=== PATIENT | male | born 1950 | race Caucasian/White ===

== ENCOUNTER → 2017-01-01 10:52 | Outpatient (CLI) | payer BC ==
[2016-07-04 08:08] VITALS: BMI 32.6
[~2017-01-01 10:52] MED LIST: ASPIRIN81 MG PO; BACTRIM DS TABL1 TAB PO; BENADRYL25 MG PO; CARDURA4 MG PO; COREG12.5 MG PO; COZAAR100 MG PO; FOLIC ACID1 MG PO; HYDROCODONE-APA1 TAB PO; NORVASC10 MG PO; PLAVIX75 MG PO; PRAVACHOL40 MG PO; PROTONIX40 MG PO; TRIAMTERENE-HCT1 TA1 PO; ULTRAM50 MG PO
== END | disposition home or self-care (01) ==
LOC: D.CT 10:52
DX: R10.9 Unspecified abdominal pain (principal)

== ENCOUNTER 2017-01-20 05:17 | Inpatient (IN) | payer BC ==
[2017-01-17 15:23] LABS: BASOPHILS 0.3 % (0.0-2.0); EOSINOPHILS 2.8 % (0-7); HEMATOCRIT 39.8 % (42.0-54.0); HEMOGLOBIN 13.1 g/dL (13.5-17.5); IMMATURE GRANULOCYTES 0.1 % (0-5); MCH 27.5 pg (26.0-34.0); MCHC 32.9 g/dL (31.0-37.0); MCV 83.4 fL (80.0-100.0); MEAN PLATELET VOLUME 8.9 fL (7.4-10.4); MONOCYTES 7.5 % (2-11); NEUTROPHILS 58.3 % (40-80); PLATELET COUNT 277 10x3/uL (130-400); RBC 4.77 10x6/uL (4.20-6.10); RDW 14.1 % (11.5-14.5); WBC 7.9 10x3/uL (4.8-10.8)
[2017-01-17 15:37] LABS: APTT 31.6 SECONDS (22.8-39.4); INR 0.99 (0.85-1.17); PROTIME 12.9 SECONDS (11.6-15.0)
[2017-01-17 15:40] LABS: ALBUMIN 3.6 g/dL (3.4-5.0); ALKALINE PHOSPHATASE 76 U/L (46-116); ALT (SGPT) 17 U/L (10-68); CALC OSMOLALITY 281 mosm/kg (275-300); CALCIUM 8.9 mg/dL (8.5-10.1); CARBON DIOXIDE 30.5 mmol/L (21.0-32.0); CHLORIDE - SERUM 103 mmol/L (98-107); CREATININE - SERUM 0.9 mg/dL (0.6-1.3); GLUCOSE 137 mg/dL (74-106); POTASSIUM - SERUM 3.7 mmol/L (3.5-5.1); PROTEIN - SERUM 7.2 g/dL (6.4-8.2); SODIUM 141 mmol/L (136-145); UREA NITROGEN 10 mg/dL (7-18); eGFR NON AFRICAN AMERICAN 90 mL/min (90-120)
[2017-01-17 16:01] LABS: APPEARANCE CLEAR (CLEAR); BILIRUBIN NEGATIVE (NEGATIVE); COLOR YELLOW (YELLOW); GLUCOSE NEGATIVE (NEGATIVE); KETONE NEGATIVE (NEGATIVE); LEUKOCYTE ESTERASE NEGATIVE (NEGATIVE); NITRITE NEGATIVE (NEGATIVE); PROTEIN NEGATIVE (NEGATIVE); UROBILINOGEN NORMAL (NORMAL)
[2017-01-17 16:04] LABS: BACTERIA NONE SEEN /hpf (NONE SEEN); EPITHELIAL CELLS NSEEN /hpf (0-5); RED CELLS - URINE 0-5 /hpf (0-5); WHITE CELLS - URINE NSEEN /hpf (0-5)
--- NOTE | 2017-01-18 10:49 | HP ---
PATIENT: DANIA FISCHER MEDICAL RECORD: [id number] ACCOUNT: [id number] LOCATION:[facility] : 54 ADMISSION DATE: 01/20/17 HISTORY AND PHYSICAL EXAMINATION Patient NameDANIA FISCHER (66yo, M) ID# [id number]. Date/Time01/15/2017 10:29ZVAHE1952Service Dept.NP_[place] ClinicProviderEDGAYLE ORTIZ MDInsuranceMed Primary: [place] Insurance # : [id number] Policy/Group # : [id number] Referring Provider Name : ANTONIO SHANNON Employer Name : [employer] Prescription: CMX - Member is eligible. Chief Complaint AAA, abdominal aortic aneurysm CTA abd/pelvis Patient's Care Team Referring Provider (): ANTONIO SHANNON: [address] [place] [phone], , Patient's Pharmacies [facility] ([facility]): [address] [place] [id number], , Vitals BP:124/74 sitting R arm 01/15/2017 10:20 am 102/70 sitting L arm 01/15/2017 10:20 amHR:72R/R 01/15/2017 10:20 amHt:6 ft 01/15/2017 10:20 amWt:238 lbs 01/15/2017 10:18 amBMI:32.3 01/15/2017 10:20 amAllergies Reviewed Allergies NKDAMedications Reviewed Medications amLODIPine 10 mg qacybr14/23/17 filledCaremarkcarvedilol 12.5 mg htnany50/23/17 filledCaremarkdoxazosin 4 mg /23/17 filledCaremarklosartan 100 mg ottgrr04/23/17 filledCaremarkpantoprazole 40 mg tablet,delayed qkeceyz87/15/17 filledCaremarkpravastatin 40 mg ijooag58/27/17 filledCaremarktraMADol 50 mg eybyxl41/13/17 filledCaremarktriamterene 37.5 mg-hydrochlorothiazide 25 mg tthxto22/23/17 filledCaremarkProblems Reviewed Problems Abdominal aortic aneurysm without rupture - Onset: 01/13/2017 Family History Discussed Family History Mother- Heart disease - Diabetes Mellitus/CVA/Kidney diseaseFather- Myocardial infarction - hyperlipedemia/HypertensionSocial History Discussed Social History Cardiology Smoking Status: Current every day smoker Smoker (1 PPW) High Cholesterol: Y High blood pressure: Y Alcohol intake: Occasional Marital status: Tobacco-years of use: 40 HISTORY AND PHYSICAL [id number] DANIA FISCHER Surgical History Reviewed Surgical History Other - back surgery Past Medical History Discussed Past Medical History Abdominal Pain: Y Aortic Aneurysm: Y - abdomen GERD: Y High Blood Pressure: Y Notes: Rheumatoid arthritis Documents for Discussion N/A Screening None recorded. HPI Peripheral Vascular Disease Reported by patient. Location: calf ("left leg hurt more than right."); abdomen Quality: cramping Severity: mild Onset/Timing: intermittent Alleviating Factors: rest Aggravating Factors: walking large abdominal aortic aneurysm ROS Patient reports cough but reports no wheezing, no shortness of breath, and no coughing up blood. He reports arthralgias/joint pain but reports no muscle aches, no muscle weakness, no back pain, and no swelling in the extremities; rheumatoid arthritis. He reports no fever, no night sweats, no significant weight gain, no significant weight loss, and no exercise intolerance. He reports no dry eyes, no irritation, and no vision change. He reports no difficulty hearing and no ear pain. He reports no frequent nosebleeds and no nose/sinus problems. He reports no sore throat, no bleeding gums, no snoring, no dry mouth, no mouth ulcers, no oral abnormalities, and no teeth problems. He reports no jugula r vein distension and no swollen glands. He reports no chest pain, no arm pain on exertion, no shortness of breath when walking, no shortness of breath when lying down, no palpitations, and no known heart murmur. He reports no abdominal pain, no vomiting, n ormal appetite, no diarrhea, not vomiting blood, no nausea, and no constipation. He reports no incontinence, no difficulty urinating, no hematuria, and no increased frequency. He reports no abnormal mole, no jaundice, and no rashes. He reports no loss of c onsciousness, no weakness, no numbness, no seizures, no dizziness, and no headaches. He reports no depression, no sleep disturbances, feeling safe in relationship, and no alcohol abuse. He reports no fatigue. He reports no swollen glands and no bruising. He reports no runny nose, no sinus pressure, no itching, no hives, and no frequent sneezing. ROS as noted in the HPI Physical Exam Patient is a 66-year-old male. Constitutional: General Appearance well nourished and developed and healthy-appearing. Level of Distress NAD. Ambulation ambulating normally. Cardiovascular: Apical Impulse not displaced or no thrill. Heart Auscultation normal s1 and s2; no murmurs, rubs, or gallops; and RRR. Arterial Pulses no HISTORY AND PHYSICAL [id number] DANIA FISCHER abdominal aorta bruits, femoral bruits, or popliteal bruits and 2+ bilateral, carotid 2+ bilateral, femoral 2+ bilateral, popliteal 2+ bilateral, and dorsalis pedis 2+ bilateral. Edema no edema or varicosities. Lungs: Repiratory Effort no dyspnea. Percussion no dullness or flatness and hyperresonance . Auscultation no wheezing, rhonchi, or rales / crackles and breathing sounds normal, good air movement, and CTA except as noted. Abdomen: Bowl Sounds normal. Inspection and Palpation no tenderness, guarding, masses, or rebound tenderness and soft and non-distended; abdominal aortic aneurysm nontender. Liver non-tender and no hepatomegaly. Spleen non-tender and no splenomegaly. Hernia none palpable. Musculoskeletal System: Gait And Stance normal gait and stance. Digits and Nails normal nails and no cyanosis. Joints, Bones, and Muscles Rheumatoid Arthritis. Neurologic: Cranial Nerves grossly intact. Reflexes DTRs 2+ bilaterally throughout. Sensation grossly intact. Lymph Nodes: Lymph Nodes no cervical LAD, supraclavicular LAD, axillary LAD, or inguinal LAD. Eyes: Lids and Conjunctivae no discharge or pallor and non-injected. Pupils PERRLA. Cornea grossly intact. EOM EOMI. Lens clear. Sclerae non-icteric. Neck: Neck no masses, enlarged lymph nodes, or carotid bruits and supple and trachea midline. Thyroid no enlargement or nodules and non-tender. Skin: Inspection and Palpation no rash, lesions, ulcers, jaundice, or abnormal nevi. Assessment / Plan abdominal aortic aneurysm 1. Abdominal aortic aneurysm I71.4: Abdominal aortic aneurysm, without rupture 2. Rheumatoid arthritis M06.9: Rheumatoid arthritis, unspecified RHEUMATOID ARTHRITIS DIET: CARE INSTRUCTIONS RHEUMATOID ARTHRITIS: CARE INSTRUCTIONS 3. Tobacco dependence syndrome F17.290: Nicotine dependence, other tobacco product, uncomplicated DECIDING ABOUT USING MEDICINES TO QUIT SMOKING STOPPING SMOKING: CARE INSTRUCTIONS Discussion Notes the patient is a large abdominal aortic aneurysm not amenable to [employer]tron[employer] stent We will review his CT scan with and [employer] he may be a candidate for oblation stent. I have discussed his disease process with him and his in detail as well as the alternative methods of treatment. We discussed endovascular and open repair of his abdominal aortic aneurysm including the expected benefits and risk which i ncluded bleeding, infection, stroke, , and the imponderables. He understands all of the above and wishes to proceed with planned surgery. Schedule for the near future HISTORY AND PHYSICAL [id number] DANIA FISCHER Return to Office None recorded. CAREY ORTIZ MD at 1049 CC: [id number] DICTATION DATE: 01/15/17 1000 IMMIGRATION ATTORNEY: CARMINE 01/17/17 1320 PRE IN [facility] [address] [place] [address]
[~2017-01-20] VITALS: Ht 182.9 cm; Wt 116.7 kg
[2017-01-20] VITALS (47 sets, daily range): BP systolic 95–139; BP diastolic 38–83; BMI 32.3; BMI 31.9
--- NOTE | ~2017-01-20 | HEMODYNAMI ---
PATIENT:DANIA FISCHER MEDICAL RECORD: [id number] : 54 [address] [id number] ADMISSION DATE: 01/20/17 Generatedon:01/21/201712:36 Patient name: DANIA FISCHER Patient #: [id number] SSN: : 1950 Date of study: 01/21/2017 Page: Of Hemodynamic Procedure Report Patient Data Patient Demographics Procedure consent was obtained First Name: DANIA Gender: Male Last Name: AALIYAH : 1950 [facility] Initial: J Age: 66 year(s) Patient #: [id number] Race: Unknown Additional ID: [id number] Contact details [address]: [address] [place] [address] State: [place] City: [place] Zip code: [address] Admission Admission Data Admission Date: 01/20/2017 Admission Time: 5:17 Room #: [facility] Procedure Procedure Types Cath Procedure Peripheral Cath Diagnostic Procedure Miscellaneous Procedure Description Procedure Date Procedure Date: 01/21/2017 Procedure Start Time: 11:06 Procedure Staff Name Function Joe Pfeiffer MD Performing Physician Nicole Carrillo RT Scrub Ladan Brooke RN Nurse Volodymyr Freire RT Monitor Procedure Data Cath Procedure Fluoroscopy Diagnostic fluoroscopy Total fluoroscopy Time: 8.6 time: 8.6 min min Diagnostic fluoroscopy Total fluoroscopy dose: dose: 5038.1 mGy 5038.1 mGy Contrast Material Contrast Material Type Amount (ml) Visipaque 270 155 Entry Location Entry Primary Successful Side Size Upsize Upsize Entry Closure Succes sful Closure Location (Fr) 1 (Fr) 2 (Fr) Remarks Device Remarks Femoral Right 5 Fr 6 Fr 7 Fr artery Short Short Femoral Left 5 Fr artery Diagnostic catheters Device Type Used For End Catheter Placement Merit ULTRA BOLUS FLUSH 5Fr 65CM catheter Procedure Medications Medication Administration Route Dosage Versed I.V. 1 mg Fentanyl I.V. 50 mcg Fentanyl I.V. 50 mcg Fentanyl I.V. 50 mcg Versed I.V. 1 mg Versed I.V. 1 mg Fentanyl I.V. 50 mcg Benadryl I.V. 50 mg Lasix I.V. 20 mg Albuterol Updraft Versed I.V. 1 mg Fentanyl I.V. 50 mcg Fentanyl I.V. 50 mcg Hemodynamics Rest Heart Rate: 149 (bpm) Snapshots Pre Cath Intra NCS Post Cath Vital Signs Time Heart Resp SPO2 NIBP (mmHg) Rhythm Pain Sedation Rate (ipm) (%) Status Level (bpm) 10:56:54 157 17 93 134/84(114) ST 7 (11) 10(A) , Very intense 11:01:02 144 17 94 141/91(111) ST 7 (11) 10(A) , Very intense 11:05:12 171 17 93 139/80(121) ST 7 (11) 10(A) , Very intense 11:09:20 148 18 93 136/85(114) ST 7 (11) 10(A) , Very intense 11:13:34 160 17 94 149/89(117) ST 7 (11) 10(A) , Very intense 11:17:52 115 17 94 157/94(118) ST 7 (11) 10(A) , Very intense 11:22:08 130 17 93 147/90(124) ST 7 (11) 10(A) , Very intense 11:26:24 90 16 95 157/92(126) ST 0 (11) 9(A) , No pain 11:30:44 123 17 96 160/93(128) ST 0 (11) 10(A) , No pain 11:35:02 122 19 95 147/93(117) ST 0 (11) 10(A) , No pain 11:40:02 [address] 0 (11) 9(A) , No pain 11:40:16 107 20 92 153/96(124) ST 0 (11) 10(A) , No pain 11:44:36 115 17 92 168/117(138) NSR 0 (11) 10(A) , No pain 11:49:08 111 17 90 167/83(122) NSR 0 (11) 10(A) , No pain 11:53:34 113 18 92 166/103(137) NSR 0 (11) 10(A) , No pain 11:57:59 103 15 93 171/98(129) NSR 0 (11) 10(A) , No pain 12:02:58 114 12 94 Measuring NSR 0 (11) 10(A) , No pain 12:03:35 93 17 93 155/100(124) NSR 0 (11) 10(A) , No pain 12:08:34 118 19 94 Measuring NSR 0 (11) 10(A) , No pain 12:09:15 141 20 94 150/116(140) NSR 0 (11) 10(A) , No pain 12:13:31 143 15 94 163/102(143) NSR 0 (11) 10(A) , No pain 12:17:55 120 15 94 163/106(144) NSR 0 (11) 10(A) , No pain 12:22:19 131 16 95 147/103(146) NSR 0 (11) 10(A) , No pain 12:26:39 111 16 92 165/102(146) NSR 0 (11) 10(A) , No pain 12:31:20 No Cuff NSR 0 (11) 10(A) , No pain 12:34:55 No Cuff NSR 0 (11) 10(A) , No pain Medications Time Medication Route Dose Verified Delivered Reason Notes Effectiven ess by by 10:42:09 Fentanyl I.V. 50 Ladan Ladan for mcg King ADELA Brooke RN right leg pain 05/26 11:04:40 Versed I.V. 1 mg Ladan Ladan for King ADELA Brooke RN sedation 11:04:48 Fentanyl I.V. 50 Ladan Ladan for mcg King ADELA Brooke RN sedation 11:17:31 Fentanyl I.V. 50 Ladan Ladan for mcg King ADELA Brooke RN right leg pain 05/26 11:25:13 Versed I.V. 1 mg Ladan Ladan for King ADELA Brooke RN sedation 11:33:00 Albuterol inhaled unit Ladan Ladan wheezes Updraft dose King ADELA Brooke RN 11:36:54 Versed I.V. 1 mg Ladan Ladan for King ADELA Brooke RN sedation 11:37:04 Fentanyl I.V. 50 Ladan Ladan for mcg King ADELA Brooke RN right leg pain 05/26 11:41:18 Benadryl I.V. 50 mg Ladan Ladan for King ADELA Brooke RN sedation 11:43:33 Lasix I.V. 20 mg Ladan Ladan wheezes King ADELA Brooke ADELA 12:05:43 Versed I.V. 1 mg Ladan Ladan for King ADELA Brooke ADELA sedation 12:10:52 Fentanyl I.V. 50 Ladan Ladan for ludwin Brooke ADELA right leg pain 05/26 12:17:34 Fentanyl I.V. 50 Ladan Ladan for ludwin Brooke ADELA right leg pain 05/26 Procedure Log Time Note 10:35:33 Volodymyr Freire RT (R) (CV) sent for patient. Start room use. 10:35:44 Time tracking: Regular hours 10:35:49 Plan of Care:Hemodynamics will remain stable., Cardiac rhythm will remain stable., Comfort level will be maintained., Respiratory function will remain adequate., Patient/ family verbilizes understanding of procedure., Procedure tolerated without complication., Recovers from procedure without complications.. 10:35:55 Patient received from ICU to IR Alert and oriented. Tansferred to table in Supine position. 10:35:56 Correct patient and procedure confirmed by team. 10:35:58 Signed procedure consent form obtained from patient. 10:35:59 ECG and BP/O2 sat monitors applied to patient. 10:36:01 Full Disclosure recording started 10:36:03 - 10:36:08 H&P Date Dictated: 01/21/2017 Within 30 days and on chart.. 10:36:10 Pre-procedure instructions explained to patient. 10:36:10 Pre-op teaching completed and patient verbalized understanding. 10:36:12 Family in waiting room. 10:36:15 Patient NPO since Midnight. 10:36:17 Is the patient allergic to Iodine/contrast media? No. 10:36:22 Was the patient premedicated? No 10:36:23 Is patient on blood thinner?No 10:36:25 Patient diabetic? No. 10:36:26 - 10:36:26 ----Pre-sedation anethsthesia assessment.---- 10:36:30 Previous problem with sedation/anesthesia? No ? 10:36:31 Snore? Yes 10:36:32 Sleep apnea? No 10:36:34 Deviated septum? No 10:36:35 Opens mouth fully? Yes 10:36:36 Sticks out tongue? Yes 10:36:38 Airway obstruction? No ? 10:36:42 Dentures? Yes out 10:36:44 - 10:37:11 Use device set IR Diagnostic 10:37:12 Sterile Angiographic Pack opened to sterile field. 10:37:13 Bag Decanter opened to sterile field. 10:37:13 Acist Manifold opened to sterile field. 10:37:15 Acist Syringe opened to sterile field. 10:37:15 Acist Hand Control opened to sterile field. 10:41:01 Pre procedure: right dorsailis pedis pulse 0-Absent 10:41:05 Pre procedure: left dorsailis pedis pulse Doppler 10:41:10 Pre procedure: right posterior tibial pulse 0-Absent 10:41:17 Pre procedure: left posterior tibial pulse Doppler 10:41:20 Sharps counted by scrub and verified by R.N. 10:41:20 Alarms reviewed by R. N. 10:41:31 Patient pain scale 7/10 rt leg. 10:41:41 IV patent on arrival in Lt subclavian with 0.9% NaCl at [facility]. 10:41:47 Bilateral groins area was prepped with chlora-prep and draped in steril e fashion 10:42:09 Fentanyl 50 mcg I.V. was given by Ladan Brooke RN; for right leg pain 710; 10:55:51 Vital chart was started 10:55:52 Baseline sample Acquired. 10:55:57 Rhythm: sinus tachycardia 11::17 Physician arrived 11::18 --------ALL STOP TIME OUT------ 11::18 Final Timeout: patient, procedure, and site verified with staff and physician. All members of the team are in agreement. 11:01:21 Bilateral groins site verified by team. 11::28 Physical assessment completed. ASA score P 3 - A patient with severe systemic disease as per Joe Pfeiffer MD. 11:01:32 Sedation plan: IV Moderate Sedation Versed, Fentanyl 11:04:40 Versed 1 mg I.V. was given by Ladan Brooke RN; for sedation; 11:04:48 Fentanyl 50 mcg I.V. was given by Ladan Brooke RN; for sedation; 11:06:24 Procedure started. 11:06:29 Local anesthetic to right femoral artery with Lidocaine 1% by Joe Pfeiffer MD.INITIAL ACCESS ONLY 11:06:40 A 5 Fr sheath was inserted into the Right Femoral artery 11:06:55 AFreeze DOC .035 guide wire opened to sterile field. 11:06:56 Micropuncture VSI 4FR kit opened to sterile field. 11:06:56 St Anastacio 5FR Sheath opened to sterile field. 11:06:59 A [employer] ULTRA BOLUS FLUSH 5Fr 65CM catheter was advanced over the wire and used for . 11:13:34 FilmijobRUNNER .035 145 glide wire opened to sterile field. 11:13:36 CXI Catheter 90cm opened to sterile field. 11:17:09 Terumo TORQUE DEVICE PLASTIC .038 opened to sterile field. 11:17:10 Terumo 5FR ANGLED 65CM glide catheter opened to sterile field. 11:17:31 Fentanyl 50 mcg I.V. was given by Ladan Brooke RN; for right leg pain /10; 11:25:13 Versed 1 mg I.V. was given by Ladan Brooke RN; for sedation; 11:26:20 Sheath upsized to a 6 Fr Short. 11:30:50 Respirations loudly audible wheezes. Resp called for breathing treatment. 11:32:32 St Anastacio 5FR Sheath opened to sterile field. 11:32:33 FilmijobRUNNER 260 .035 glide wire opened to sterile field. 11:33:00 Albuterol Updraft unit dose inhaled was given by Ladan Brooke RN; wheezes; 11:33:53 Cook VEGAS 260 guide wire opened to sterile field. 11:34:35 Cordis 6Fr BRITE TIP 11cm sheath opened to sterile field. 11:35:27 A 5 Fr sheath was inserted into the Left Femoral artery 11:36:31 RT.femoral sheath exchanged for 6frl sheath' 11:36:54 Versed 1 mg I.V. was given by Ladan Brooke RN; for sedation; 11:37:04 Fentanyl 50 mcg I.V. was given by Ladan Brooke RN; for right leg pain 7/10; 11:37:27 Angiojet PROXI 6Fr 90CM thrombectomy catheter opened to sterile field. 11:40:33 Wheezes continue after Albuterol breathing treatment completed. 11:41:18 Benadryl 50 mg I.V. was given by Ladan Brooke RN; for sedation; 11:43:33 Lasix 20 mg I.V. was given by Ladan Brooke RN; wheezes; 11:45:06 BasixTOUCH Inflation Syringe opened to sterile field. 11:46:04 Inflation number: 1 A Cordis Powerflex Pro 6.0 x 40 x 80cm balloon was prepped and advanced across the Mid Common Iliac, Right, then inflated to 0 ANILA for 0:00 (min:sec). 11:46:16 Ax temp 98.9 11:52:20 Zero performed for pressure channel P1 11:57:06 Cordis 7Fr BRITE TIP 11cm sheath opened to sterile field. 11:57:42 Sheath upsized to a 7 Fr Short. 11:58:24 Cordis Carmella 10 x 39 x 135 stent was deployed across Mid Common Iliac , Right . 11:59:15 Zero performed for pressure channel P1 11:59:26 Zero performed for pressure channel P1 12:05:43 Versed 1 mg I.V. was given by Ladan Brooke RN; for sedation; 12:10:52 Fentanyl 50 mcg I.V. was given by Ladan Brooke RN; for right leg pain 7/10; 12:10:54 Cordis Carmella 10 x 39 x 135 stent was deployed across Mid Common Iliac , Right . 12:11:14 ANGIOSEAL-VIP PLUS 6 FR opened to sterile field. 12:13:56 Procedure ended.(Physican Out) 12:17:34 Fentanyl 50 mcg I.V. was given by Ladan Brooke RN; for right leg pain 05/26; 12:20:54 Fluoroscopy time 08.60 minutes. 12:20:59 Contrast amount:Visipaque 270 155ml. 12:21:01 Sharps counted by scrub and verified by R.N. 12::55 Fluoroscopy dose: 5038.1 mGy 12::55 Flurop Dose total: 5038.1 12:21:59 Insertion/operative site no bleeding no hematoma. 12:22:02 Post-op/insertion site Right Femoral artery dressed using a 4 x 4 and Tegaderm. 12:22:09 Post right femoral artery:stable 12:22:26 lt. sheath sutured in with 2.0 silk 12:22:47 2.0 Silk 685H opened to sterile field. 12:22:54 Post Procedure Pulses reassessed and unchanged 12:32:20 Post procedure: right dorsailis pedis pulse Doppler. 12:32:23 Post procedure: left dorsailis pedis pulse Doppler. 12:32:26 Post procedure: right posterior tibial pulse Doppler. 12:32:29 Post procedure: left posterior tibial pulse Doppler. 12:33:17 Post-procedure physical assessment completed. ASA score P 3 - A patient with severe systemic disease as per Joe Pfeiffer MD. 12:33:18 Post procedure instruction explained to patient.Patient verbalizes understanding. 12:33:19 Procedure and supply charges have been captured, reviewed, submitted an d are correct. 12:34:53 Report given to ICU. 12:34:57 Patient transfered to ICU with Bed. 12:36:45 Vital chart was stopped Intervention Summary Intervention Notes Time ActionType Lesion and Equipment Action# Pressure Duration Attributes Used 11:46:04 Inflate Mid Common Cordis 1 0 00:00 balloon Iliac, Powerflex Right Pro 6.0 x 40 x 80cm balloon 11:58:24 Deploy self Mid Common Cordis 1 expanding Iliac, Carmella stent Right 10 x 39 x 135 stent 12:10:54 Deploy self Mid Common Cordis 2 expanding Iliac, Carmella stent Right 10 x 39 x 135 stent Device Usage Item Name Manufacture Quantity Catalog Number Hospital Part Current Min imal Lot# / Charge Number Stock Stock Serial# Code Sterile Cardinal 1 [id number] [id number] 5 Angiographic Health Pack Bag Decanter Microtek 1 2001S [id number] 79208 885183 5 Medical Inc. Acist Acist 1 89139 487302 551695 921913 5 Manifold Medical Systems Inc Acist Syringe Acist 1 65055 881964 719161 234169 20 Medical Systems Inc Acist Hand Acist 1 04909 999646 296157 579657 5 Control Medical Systems Inc Cook DOC .035 [place] [facility] 1 P98348 808424 838050 5 2829819 guide wire Micropuncture VSI VASCULAR 1 7266V 068504 292873 [address] Anastacio [address] St Anastacio 2 010528 011882 324012 5 0118585 Sheath 5669413 Merit ULTRA Merit 1 [id number] 205802 560034 5 BOLUS FLUSH Medical 5Fr 65CM catheter [facility] 1 P77021 496328 634106 5 1459368 ROADRUNNER .035 145 glide wire CXI Catheter [facility] 1 E35747 272678 216231 106566 5 [id number] 90cm Terumo TORQUE [place] 1 TD01 321990 252891 559695 5 DEVICE Scientific PLASTIC .038 Terumo 5FR Terumo 1 CG507 021023 404482 5 ANGLED 65CM glide catheter [facility] 1 E46610 127116 793222 5 2955671 ROADRUNNER 260 .035 glide wire Cook [facility] 1 Y23702 279455 443310 5 0646255 260 guide wire Cordis 6Fr Cardinal 1 [id number] 448982 068410 5 BRITE TIP Health 11cm sheath Angiojet [place] 1 603067-812 903754 272936 552464 5 PROXI 6Fr Scientific 90CM thrombectomy catheter BasixTOUCH Merit 1 CL1268 470577 033082 147353 5 [id number] Inflation Medical Syringe Cordis Cardinal 1 [id number] 655450 031180 906744 5 Powerflex Pro Health 6.0 x 40 x 80cm balloon Cordis 7Fr Cardinal 1 [id number] 362909 642850 5 BRITE TIP Health 11cm sheath Cordis Cardinal 1 [id number] 261170 359554 422796 5 Carmella 10 x Health 39 x 135 stent AN[address]IOSEAL-[facility] Anastacio 1 077721 804597 790715 5 1517270 PLUS 6 FR 2.0 Silk 685H Ethicon 1 685H 946296 04678 194632 5 Signature Audit [place] Stage Time Signature Unsigned Intra-Procedure 01/21/2017 Volodymyr 12:36:42 PM Tani RT (R) (CV) Signatures Monitor : Volodymyr Signature : Tani RT Date : Time : [place] [id number] [place] [id number]
[~2017-01-20 05:17] MED LIST changes: -ASPIRIN81 MG PO; -BACTRIM DS TABL1 TAB PO; -BENADRYL25 MG PO; -PLAVIX75 MG PO
--- NOTE | 2017-01-20 10:45 | NUR ---
Bed zeroed with SCD machine, fernando pressure box and air overlay boxes all attached to bed.
--- NOTE | 2017-01-20 13:28 | NUR ---
PT ARRIVED TO ROOM VIA BED. ON VENTILATOR. HR 108. RESPIRATIONS 17. 96%. BP 162/92.HAS NGT TO RIGHT NARE. RIGHT RADIAL ART LINE. PEDAL PULSES PALPABLE. HAS MICHELLTCISMAEL GUIDRY. TEMP 36.4C. ON DOPAMINE AT 5MCG, PLASMALYTE AT 100, NITRO ON HOLD. HAS FENTANYL BUPLVICAINE 0.25% EPIDURAL
[2017-01-20 13:59] LABS: HEMATOCRIT 37.5 % (42.0-54.0); HEMOGLOBIN 12.2 g/dL (13.5-17.5); MCH 27.1 pg (26.0-34.0); MCHC 32.5 g/dL (31.0-37.0); MCV 83.1 fL (80.0-100.0); MEAN PLATELET VOLUME 8.7 fL (7.4-10.4); RBC 4.51 10x6/uL (4.20-6.10); RDW 14.2 % (11.5-14.5)
--- NOTE | 2017-01-20 14:00 | NUR ---
Patients allowed back, spoke with Fox and stood with patient for some time. Asked to step out while patient gets situated. in waiting room.
[2017-01-20 14:33] LABS: ALBUMIN 2.6 g/dL (3.4-5.0); ALKALINE PHOSPHATASE 58 U/L (46-116); ALT (SGPT) 15 U/L (10-68); BILIRUBIN - TOTAL 0.41 mg/dL (0.2-1.3); CALC OSMOLALITY 290 mosm/kg (275-300); CALCIUM 7.9 mg/dL (8.5-10.1); CARBON DIOXIDE 27.7 mmol/L (21.0-32.0); CHLORIDE - SERUM 108 mmol/L (98-107); CREATININE - SERUM 0.9 mg/dL (0.6-1.3); GLUCOSE 150 mg/dL (74-106); POTASSIUM - SERUM 4.3 mmol/L (3.5-5.1); PROTEIN - SERUM 5.4 g/dL (6.4-8.2); SODIUM 145 mmol/L (136-145); UREA NITROGEN 11 mg/dL (7-18); eGFR NON AFRICAN AMERICAN 90 mL/min (90-120)
--- NOTE | 2017-01-20 15:20 | NUR ---
informed of right pedal pulse not being found via doppler. No new orders at this time.
--- NOTE | 2017-01-20 15:27 | NUR ---
Patient had large gelatinous stool. Turned, cleaned and new linens placed. Patient tolerated well.
--- NOTE | 2017-01-20 15:55 | NUR ---
in room to see patient. Attempts to find right pedal and popliteal pulses via doppler were unsucessful. Right femoral pulse found via doppler. Orders to keep scds and teds off, as well as to keep the right foot covered and objects off of foot given.
--- NOTE | 2017-01-20 16:17 | NUR ---
called and informed of consult
--- NOTE | 2017-01-20 16:25 | NUR ---
Swtiched to CPAP on vent.
--- NOTE | 2017-01-20 17:15 | NUR ---
Patient extubated to 4 L NC. Tolerated well. Given heart pillow and yaunker. Patient given extensive instruction on NGT. Patient verbalizes understanding.
--- NOTE | 2017-01-20 18:24 | NUR ---
Edilma with RT in room with patient. Patient performing IS, pulling [phone].
--- NOTE | 2017-01-20 18:40 | NUR ---
CAMRYN obtained and called for update. New orders for low dose sliding scale, AMP of BIcarb and a A1C draw received. Orders placed.
[2017-01-20 19:20] LABS: HEMOGLOBIN A1C 6.1 % (4.8-6.0)
--- NOTE | 2017-01-20 19:35 | NUR ---
REC'D PT ON O2 @ 3LITERS RESTING IN BED EYES CLOSED, AWAKENS TO VERBAL STIMULI, ORIENTED X 3, RIGHT NARE NGT SECURED WITH EILEEN TO LCWS, PLACEMENT VERIFIED, ABD ROUND BS HYPOACTIVE, MIDLINE ABD DRSG CDI, LDLSCL DRSG CDI WITH D51/2NS WITH 40KCL @ 100CC/HR, DOPAMINE @ 5MCG/KG/MIN OR 12.2CC/HR, NITROGLYCERIN @ 7CC/HR OR 0.359MCG/KG/MIN, AND ZINACEF @ 11.4CC/HR, RIGHT RADIAL ROSALINE WITH FLEXION BOARD, POSITIONAL, ALL LINES LEVELED AND ZEROED WITH RETURN OF APPRORPRIATE WAVEFORMS, CRITICORE GUIDRY PATENT DRAINING CLEAR YELLOW URINE, LEFT LEG WARM TO TOUCH WITH PULSES PALPABLE, RIGHT LEG WARM TO KNEE, TEMPRATURE CHANGE NOTED BELOW KNEE SLIGHTLY COOLER THAN LEFT, UNABLE TO DOPPLER PULSES TO RIGHT FOOT, MD AWARE, FEMORAL PULSE DOPPLERED, WARM BLANKET APPLIED TO RIGHT LEG, HEELS BRIDGED, EPIDURAL TAPED SECURELY TO BACK INFUSING @ 10CC/HR WITH 4CC Q15MIN MIN BOLUS AVAILABLE FOR BREAKTHROUGH PAIN, PT DENIES PAIN AT THIS TIME, SR UP X 2, AIR OVERLAY MATTRESS IN USE, VISIBLE TO NURSES STATION, BED IN LOW POSITION HOB ELEVATED 30 DEGREES.
--- NOTE | 2017-01-20 19:50 | NUR ---
FSBS 178, 2 UNITS REGULAR INSULIN GIVEN SUBCUE TO RIGHT ARM, 1 AMP SODIUM BICARB GIVEN ORDERED, BP 136/68, WILL WEAN DOPAMINE TOLERATED.
--- NOTE | 2017-01-20 20:15 | NUR ---
PT REPOSITIONED UP IN BED, PRODUCTIVE COUGH OF WHITE SPUTUM, PT USING YANKEUR TO CLEAR SECRETIONS, PT COMPLAINS OF NECK PAIN, PILLOWS ADJUSTED FOR COMFORT.
--- NOTE | 2017-01-20 21:00 | NUR ---
NO VISITORS IN AT THIS TIME
--- NOTE | 2017-01-20 21:20 | NUR ---
PT REPOSITIONED ONTO BACK AND UP IN BED FOR COMFORT, STATES "THAT FEELS MUCH BETTER", HEELS BRIDGED, BLANKET TO RIGHT LEG, WILL MONITOR CLOSELY FOR CHANGES.
--- NOTE | 2017-01-20 22:45 | NUR ---
RT AT BS FOR ABG AND IS, PT PULLING 1700 ON IS, PRODUCTIVE COUGH OF CLEAR SPUTUM, O2 SAT 97%, WILL MONITOR FOR CHANGES.
--- NOTE | 2017-01-20 23:10 | NUR ---
PT REPOSITIONED UP IN BED AND ONTO RIGHT SIDE SUPPORTED WITH PILLOW, PT COMPLAINS OF DISCOMFORT WITH MOVING, COUGHING AND DEEP BREATHING DONE, PT COUGHING UP WATER FROM FLUSHING NGT, HOB ELEVATED MORE, MINIMAL OUTPUT IN SUCTION CANNISTER, CONNECTIONS ADJUSTED, NG OUTPUT INCREASING AT THIS TIME, PT DENIES FURTHER NEEDS.
[2017-01-21] VITALS (84 sets, daily range): BP systolic 100–150; BP diastolic 50–79; Ht 182.9 cm; Wt 116.7 kg
--- NOTE | 2017-01-21 00:40 | NUR ---
PT REPOSITIONED UP AND ONTO LEFT SIDE PER REQUEST, SMALLER PILLOW PROVIDED FOR HEAD, PT CONTINUES TO COMPLAIN OF NECK PAIN AT TIMES, REMINDED TO USE EPIDURAL CAREER SPECIALIST BUTTON NEEDED FOR BREAKTHROUGH PAIN, PT VERBALIZES UNDERSTANDING.
--- NOTE | 2017-01-21 00:45 | NUR ---
DOPAMINE WEANED OFF AT THIS TIME, PT RESTING EYES CLOSED, VSS, WILL CONT TO MONITOR.
--- NOTE | 2017-01-21 02:15 | NUR ---
RT AT BS FOR TIMED ABG, IS DONE WITH PT, PT PULLING 1500, PRODUCTIVE COUGH AFTER OF CLEAR SPUTUM, PT DENIES NEEDS.
--- NOTE | 2017-01-21 02:20 | NUR ---
PT REPOSITIONED UP AND OFF OF LEFT SIDE OF BED, PT COMPLAINS OF RIGHT LEG HURTING, STATES " IT IS SO NUMB IT HURTS", PT MOVING LEFT LEG WITH NO DIFFICULTY, LEG REMAINS COOL TO TOUCH BELOW KNEE, PULSES REMAIN ABSENT BY DOPPLER, BLANKET REAPPLIED TO LEG AND OTHER OBJECTS KEPT OFF OF LEG ORDERED, ATTEMPTING TO WEAN NITROGLYCERIN.
--- NOTE | 2017-01-21 03:40 | NUR ---
RADIOLOGY AT FOR AM CXR, PT REPOSITIONED UP IN BED, PT COMPLAINS THAT BACK OF CALF IS HURTING ON RIGHT LEG, RIGHT LEG WARMER DOWN TO MIDCALF, UNABLE TO DOPPLER PEDAL PULSES, PT ABLE TO MOVE RIGHT LEG SLIGHTLY BUT UNABLE TO WIGGLE TOES, LEFT LEG WARM WITH PEDAL PULSES PALPABLE, HEELS BRIDGED, WILL CONT TO MONITOR CLOSELY FOR CHANGES.
--- NOTE | 2017-01-21 05:35 | NUR ---
AM LAB DRAWN FROM ROSALINE AND SENT TO LAB, PT UNCOMFORTABLE IN BED, COMPLAINS OF RIGHT HIP AND LEG PAIN, DESCRIBES IT "NUMB", REPOSITIONED ONTO LEFT SIDE SUPPORTED WITH PILLOW, WILL CONTINUE TO MONITOR CLOSELY FOR CHANGES.
--- NOTE | 2017-01-21 06:10 | NUR ---
PT CONTINUES TO COMPLAIN OF RIGHT LEG AND HIP PAIN, RATING "7" ON 0-10 PAIN SCALE, RATING ABDOMEN "2", PT REPORTS LEG IS NO BETTER AFTER POSITION CHANGE, ANESTHESIA PAGED AT THIS TIME.
--- NOTE | 2017-01-21 06:40 | NUR ---
DR. ZAZUETA AT BS SPEAKING WITH PATIENT, EPIDURAL DECREASED TO 6CC/HR, DR. ZAZUETA ATTEMPTED TO DOPPLER PULSES ON RIGHT LEG WITH NO SUCCESS, RIGHT LEG REMAINS COOLER THAN LEFT BELOW THE KNEE, LEG COVERED WITH WARM BLANKET, PT DENIES NEEDS AT THIS TIME.
[2017-01-21 06:47] LABS: ALBUMIN 2.8 g/dL (3.4-5.0); ALKALINE PHOSPHATASE 41 U/L (46-116); CALCIUM 8.1 mg/dL (8.5-10.1); CARBON DIOXIDE 24.5 mmol/L (21.0-32.0); CHLORIDE - SERUM 110 mmol/L (98-107); CREATININE - SERUM 0.9 mg/dL (0.6-1.3); GLUCOSE 132 mg/dL (74-106); POTASSIUM - SERUM 4.2 mmol/L (3.5-5.1); PROTEIN - SERUM 5.5 g/dL (6.4-8.2); SODIUM 143 mmol/L (136-145); eGFR NON AFRICAN AMERICAN 90 mL/min (90-120)
[2017-01-21 06:53] LABS: ALT (SGPT) 29 U/L (10-68); CALC OSMOLALITY 287 mosm/kg (275-300); UREA NITROGEN 16 mg/dL (7-18)
--- NOTE | 2017-01-21 07:02 | CN ---
PATIENT NAME:DANIA FISCHER MEDICAL RECORD: [id number] : 54 LOCATION:[facility] ADMIT DATE: 01/20/17 ACCOUNT: [id number] CONSULTING PHYSICIAN: ANTONIO SHANNON MD REFERRING PHYSICIAN: CAREY BRAXTON MD DATE OF CONSULTATION: 01/20/2017 DATE OF ADMISSION: 01/20/2017 REASON FOR CONSULTATION: Medical management. HISTORY OF PRESENT ILLNESS: The patient is a 66-year-old gentleman who had earlier this year complained of abdominal pain. He had been sent for a CT scan of the abdomen. CT scan did reveal a very large aortic aneurysm, was approximately 7-1/2 cm at the maximum transverse diameter, it was infrarenal. The patient was referred to Dr. Braxton for consultation. Therefore, the patient is admitted for AAA repair. PAST MEDICAL HISTORY: Significant that he has had a longstanding history of hypertension. He has also had hyperlipidemia and hypokalemia. He has had lumbar surgery in the past. SOCIAL HISTORY: The patient is . 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 Educated through the 12th grade. The patient is a smoker, one and half pack per day for many years. He is also moderate caffeine ____. No alcohol ingestion. FAMILY HISTORY: Significant that mother, father and brother had heart disease. Mother had diabetes mellitus. Mother had CVA as well. Father had a myocardial infarction. ALLERGIES: The patient has no known drug allergies. MEDICATIONS: Include amlodipine 10 mg 1 p.o. at bedtime. He is on carvedilol 12.5 b.i.d. Dexilant 60 mg once a day, doxazosin 4 mg p.o. b.i.d., losartan 100 mg once a day, Protonix 40 mg once a day, pravastatin 40 mg once a day, triamterene 37.5/25, hydrochlorothiazide once a day. REVIEW OF SYSTEMS: CONSTITUTIONAL: He denies any headaches, seizure or syncope. Denies change in visual or auditory acuity. PULMONARY: He denies any shortness of breath, cough, congestion, history of TB, asthma or bronchitis. CARDIOVASCULAR: He denies any chest pain, palpitation, PND or orthopnea. GASTROINTESTINAL: No chronic nausea, vomiting, melena or hematochezia. GENITOURINARY: No urgency, frequency, or dysuria. PHYSICAL EXAMINATION: GENERAL: The patient is postop. He had recently been extubated. He is somewhat sedated at present time. VITAL SIGNS: His temperature was 99, his pulse 88, respirations were 12, his blood pressure 134/77, O2 sat was 99%. HEENT: Head is normocephalic. No lesions. Ears: TMs clear. Eyes: Pupils equal, round and reactive to light. His extraocular movements are intact. His nasal cavity, oral cavity, oropharynx clear. CONSULT REPORT [id number] DANIA FISCHER NECK: Supple. There is no adenopathy. HEART: Regular rate and rhythm without any murmurs, gallops or rubs. LUNGS: Clear. ABDOMEN: Soft. The bowel sounds are positive. EXTREMITIES: The patient does have a bandage over his abdomen midline. He has 2+ dorsalis pedis, posterior tibial pulses bilaterally. The patient postoperatively had a white count of 14, hemoglobin 12.2, hematocrit 37.5, platelets are 193. His sodium was 145, potassium 4.3, chloride 108, CO2 is 27.7, BUN is 11, creatinine 0.9, blood sugar slightly elevated at 150. His urinalysis on the 3rd was unremarkable. On the 3rd, his INR was 0.99. ASSESSMENT: 1. Status post abdominal aortic aneurysm repair. 2. Hypertension. 3. Long history of smoking. PLAN: Continue in the ICU. We will repeat lab in a.m. Most likely restart all p.o. pain medications in the a.m. TRANSINT:[id number] Voice Confirmation ID: [id number] DOCUMENT ID: [id number] ANTONIO SHANNON MD at 0702 CC: [id number] DICTATION DATE: 01/20/171810 CHIEF ENGINEER DRILLING AND RECOVERY: 01/21/17 0102 ADM IN [facility] [address] [place] [address]
[2017-01-21 07:10] LABS: MCH 26.9 pg (26.0-34.0); MCHC 32.5 g/dL (31.0-37.0); MCV 82.6 fL (80.0-100.0); MEAN PLATELET VOLUME 9.5 fL (7.4-10.4); RDW 14.3 % (11.5-14.5)
--- NOTE | 2017-01-21 07:10 | NUR ---
Received report and assumed care of patient. Patient is currently awake, alert and oriented. C/O right leg pain, can move leg freely. Pulses in right leg are absent via doppler and palpation. Femoral pulses present via doppler. Leg leg pulses are bounding. Patient is sinus rhythm rate of 86 on CM. Left subclavian CVL with D51/2ns +40KCL, nitro gtt and zinacef infusing. Right nare NGT secured in place to low cont suction. Left hand 18 g with blood tubing attached, not infusing. Mindline abdominal incision is CDI, with shadowing noted on dressing.ABdomen in distended but soft. Criticore goel in place, draining concentrated yellow urine. Right radial nelli with good wave form. See shift assessment flowsheet for all findings.
[2017-01-21 07:11] LABS: HEMATOCRIT 29.5 % (42.0-54.0); HEMOGLOBIN 9.6 g/dL (13.5-17.5); RBC 3.57 10x6/uL (4.20-6.10); WBC 7.5 10x3/uL (4.8-10.8)
--- NOTE | 2017-01-21 07:40 | NUR ---
in room with Yandel Villa to see patient. Patient c/o pain in right leg and buttock area. given update regarding dopamine, cleviprex etc. New order for CTA of ABD, Pelvis and Legs received. Also instructed to have Dmitri return and increase epidural rate.
--- NOTE | 2017-01-21 08:20 | NUR ---
here, increased epidural rate from 6 to 10. Also gave bolus into epidural line. Effects seen in BP and patient states pain is better.
--- NOTE | 2017-01-21 09:54 | NUR ---
Patient back from CT. Reconnected to room monitors. in room
--- NOTE | 2017-01-21 10:30 | NUR ---
spoke to regarding patients CTA. Patient will be taken to IR to determine blood flow with possible intervention. Patient and explained procedure and have consented. Patient sent with Volodymyr Pickering and Loraine CHAPMAN. Cleviprex hanging, Nipride gtt given for safe measure.
--- NOTE | 2017-01-21 11:13 | NUR ---
ADELA Pickering in IR called regarding patients respiratory status. States patient is wheezy in IR.
--- NOTE | 2017-01-21 12:26 | NUR ---
Patient remains in IR. Madeleine Puri RN at bedside. Ladan with IR also with patient.
--- NOTE | 2017-01-21 13:00 | NUR ---
PAtient back form IR. Has a right pedal pulse via doppler. Remains under the effects of sedation used in procedure. Currently on Nipride and cleviprex gtts. Daisy CHAPMAN aware.
--- NOTE | 2017-01-21 14:00 | NUR ---
Patient waking up from procedure. No complaints at this time.
--- NOTE | 2017-01-21 16:00 | NUR ---
informed of patient temperature and HR as well as Cleviprex and nipride infusions.
--- NOTE | 2017-01-21 16:30 | NUR ---
in room to see patient. POC and KATYA polanco disucssed with and patient.
--- NOTE | 2017-01-21 17:15 | NUR ---
Lopressor IV given per order for HR. HR decreasing, celiprex and nipride also decreased. Pedal pulse remains present via doppler. Right leg is beginning to warm up. Left femoral sheath remains intact with ns infusing at 30.
--- NOTE | 2017-01-21 19:20 | NUR ---
REPORT REC'D AND CARE ASSUMED, REC'D PT AWAKE, ALERT, ORIENTED X 3, O2 @ 5L VIA OXYMIZER, RIGHT NARE NGT TO LCWS WITH BROWN DRAINAGE NOTED, SECURED WITH EILEEN, PLACEMENT VERIFIED VIA SM AIR BOLUS AUSCULTATED OVER EPIGASTRIM, RIGHT RADIAL ROSALINE WITH FLEXION BOARD IN USE, LDLSCL DRSG CDI WITH D51/2NS WITH 40KCL @ 100CC/HR, CLEVIPREX @ 9.5 MG/HR, AND NIPRIDE @ 1.0 MCG/KG/MIN CM-ST @ 112, EPIDURAL TAPED SECURELY TO BACK INFUSING @ 10CC/HR WITH A 4CC Q15MIN BOLUS AVAILABLE, PT DENIES PAIN AT THIS TIME, ABD DISTENDED, BS HYPOACTIVE, RIGHT GROIN DRSG CDI, LEFT GROIN DRSG CDI WITH SHEATH NOTED, PT REMINDED TO KEEP LEFT LEG STRAIGHT AND WHY, PT VERBALIZES UNDERSTANDING, RIGHT LEG WARM TO TOUCH, PP BY DOPPLER, BILAT HEELS BRIDGED, AIR OVERLAY MATTRESS IN USE, VISIBLE TO NURSES STATION.
--- NOTE | 2017-01-21 20:00 | NUR ---
DR. HANSON RETURNED PAGE, INFORMED OF CONSULT, NEW ORDERS REC'D.
--- NOTE | 2017-01-21 20:02 | NUR ---
Ron paged to inform about consult. Waiting for return call back.
--- NOTE | 2017-01-21 20:30 | NUR ---
BROUGHT BS PER REQUEST SO SHE COULD GO ON HOME, UPDATE GIVEN AND QUESTIONS ANSWERED
--- NOTE | 2017-01-21 20:50 | NUR ---
URINE CULTURE COLLECTED AND SENT TO LAB.
--- NOTE | 2017-01-21 21:35 | NUR ---
EVENING MEDS GIVEN, NO FURTHER VISITORS, BEGINNING TO WEAN NIPRIDED, WILL MONITOR CLOSELY FOR CHANGES.
--- NOTE | 2017-01-21 23:30 | NUR ---
REASSESSMENT COMPLETED, PT REPOSITIONED UP IN BED FOR COMFORT, ICE CHIPS PROVIDED, FSBS 160, 2 UNITS REGULAR INSULIN GIVEN SUBCUE TO LEFT ARM, IS DONE WITH PT, PT PULLING [id number] AT THIS TIME, EXPIRATORY WHEEZES NOTED, COUGHING AND DEEP BREATHING DONE, PT DENIES FURTHER NEEDS.
[2017-01-22] VITALS (87 sets, daily range): BP systolic 108–140; BP diastolic 53–76
--- NOTE | 2017-01-22 01:30 | NUR ---
PT RESTING EYES CLOSED, RESP EVEN AND UNLABORED, VSS, ATTEMPTING TO WEAN GTTS TOLERATED.
--- NOTE | 2017-01-22 03:30 | NUR ---
RADIOLOGY @ BS FOR AM CXR
--- NOTE | 2017-01-22 03:50 | NUR ---
COMPLETE BATH AND LINEN CHANGE PROVIDED, LDLSCL DRSG CHANGED SITE CLEANED WITH CHLORAPREP, BIOPATCH APPLIED AND COVERED WITH TEGADERM, PT REPOSITIONED UP IN BED FOR COMFORT, TOLERATED WELL.
--- NOTE | 2017-01-22 05:30 | NUR ---
AM LAB DRAWN FROM CVL AND SENT TO LAB, PT RESTING EYES CLOSED, RESP EVEN AND UNLABORED, VSS.
[2017-01-22 06:02] LABS: BASOPHILS 0.1 % (0.0-2.0); EOSINOPHILS 0.1 % (0-7); HEMATOCRIT 32.1 % (42.0-54.0); HEMOGLOBIN 10.3 g/dL (13.5-17.5); IMMATURE GRANULOCYTES 0.2 % (0-5); LYMPHOCYTES 15.2 % (15-50); MCH 26.8 pg (26.0-34.0); MCHC 32.1 g/dL (31.0-37.0); MCV 83.4 fL (80.0-100.0); MEAN PLATELET VOLUME 9.4 fL (7.4-10.4); MONOCYTES 7.8 % (2-11); NEUTROPHILS 76.6 % (40-80); PLATELET COUNT 184 10x3/uL (130-400); RBC 3.85 10x6/uL (4.20-6.10); RDW 14.6 % (11.5-14.5); WBC 9.2 10x3/uL (4.8-10.8)
--- NOTE | 2017-01-22 06:15 | NUR ---
FAMILY AT BS VISITING WITH PT, PT DENIES NEEDS, VSS WILL CONT TO MONITOR.
[2017-01-22 06:25] LABS: ALBUMIN 2.8 g/dL (3.4-5.0); ANION GAP 12.6 mmol/L (8-16); BILIRUBIN - TOTAL 0.8 mg/dL (0.2-1.3); CALCIUM 8.1 mg/dL (8.5-10.1); CARBON DIOXIDE 26.6 mmol/L (21.0-32.0); CREATININE - SERUM 1.1 mg/dL (0.6-1.3); POTASSIUM - SERUM 4.2 mmol/L (3.5-5.1); PROTEIN - SERUM 5.9 g/dL (6.4-8.2)
--- NOTE | 2017-01-22 08:00 | NUR ---
SHIFT ASSESSMENT VIA FLOWSHEET, SEE FOR DETAILS. VSS, ST ON CM.
--- NOTE | 2017-01-22 09:20 | NUR ---
AT BEDSIDE, UPDATE PROVIDED. PT AWAKE AND ALERT CONVERSING WITH HER, REPORTS NO PAIN AT THIS TIME. VSS, SR ON CM.
--- NOTE | 2017-01-22 11:28 | NUR ---
Patient Name: DANIA FISCHER Admission Status: Elective Accout number: [id number] Admission Date: 01-20-2017 : 1950 Admission Diagnosis:ABDOMINAL AORTIC ANEURYSM, WITHOUT RUPTURE Attending: LUCILA Current LOS: 2 Anticipated DC Date: 01-24-2017 Planned Disposition: Home Primary Insurance: [employer] Is the patient Alert and Oriented? Yes 0 * How many steps to enter\exit or inside your home? FIVE 0 * PCP DR SHANNON 0 * Pharmacy [facility] [address] * Preadmission Environment Home with Family * ADLs Independent * Equipment Rolling Walker--AVAILABLE FROM [facility] Shower Chair * List name and contact numbers for known caregivers / representatives who currently or will assist patient after discharge: LULY FISCHER, SPOUSE, -cell * Community resources currently utilized [facility] * Please name any agencies selected above. PT CURRENTLY HAS HH SERVICES WITH [facility] FOR RECENT SHOULDER SURGERY * Additional services required to return to the preadmission environment? No * Can the patient safely return to the preadmission environment? Yes * Has this patient been hospitalized within the prior 30 days at any hospital? No Discharge Planning Comments: CM MET WITH PATIENT AND HIS SPOUSE TO ASSESS DC PLAN/NEEDS. PT STATED HE LIVES AT HOME WITH HIS AND PRIOR TO THIS ADMISSION WAS INDEPENDENT IN HIS CARE/ADL'S. HE STATED HIS WILL DRIVE HIM HOME AT DISCHARGE. HE STATED HE HAS RECENTLY HAD A SHOULDER SURGERY IN [place] TO REPAIR A TORN ROTATOR CUFF AND IS CURRENTLY GETTING HH PHYSICAL THERAPY SERVICES FROM [facility] . STATED HH AGENCY IS AWARE THAT HE IS IN HOSPITAL. HE ALSO STATED HE PLANS TO RESUME HH SERVICES AT [place]. CM WILL SEND DC INFO TO HH AGENCY AT [place]. HE VOICED NO NEED FOR ANY ADDITIONAL DME OR HOME SERVICES AT DISCHARGE. CM WILL FOLLOW AND ASSIST WITH ANY DC NEEDS THEY ARISE. Cloth Bale Header: Amna Sweet RN,
--- NOTE | 2017-01-22 11:30 | NUR ---
REASSESSMENT VIA FLOWSHEET, SEE FOR DETAILS.
--- NOTE | 2017-01-22 12:00 | NUR ---
EPIDURAL DISCONNETED, RECONNECTED PER DR WEIR.
--- NOTE | 2017-01-22 12:15 | NUR ---
SPOKE WITH RAMESH BENÍTEZ RN INFORMED OF EPIDURAL ISSUE.
--- NOTE | 2017-01-22 15:30 | NUR ---
REASSESSMENT VIA FLOWSHEET, SEE FOR DETAILS.
--- NOTE | 2017-01-22 16:00 | NUR ---
TYLENOL SUPP ADMINISTERED FOR ELEVATED TEMP.
--- NOTE | 2017-01-22 16:45 | NUR ---
ICE PACKS APPLIED TO PATIENT.
--- NOTE | 2017-01-22 19:30 | NUR ---
REPORT REC'D AND CARE ASSUMED, REC'D PT AWAKE, ALERT, ORIENTED X 3, O2 @ 5LITERS VIA OXYMIZER, RIGHT NARE NGT SECURED WITH EILEEN, PLACEMENT VERIFIED VIA SM AIR BOLUS AUSCULTATED, NGT TO LCWS, LDLSCL DRSG CDI WITH D51/2NS WITH 40KCL @ 100CC/HR AND CLEVIPREX @ 32CC/HR, MIDLINE ABDOMINAL INCISION, DRSG CDI, RIGHT RADIAL ROSALINE WITH FLEXION BOARD IN USE, LINES LEVELED AND ZEROED WITH RETURN OF APPROPRIATE WAVEFORM, LEFT GROIN SHEATH WITH HEPARNIZED SALINE INFUSING @ 30CC/HR, SITE WITH SM AMOUNT OF BRUISING, NO BLEEDING OR HEMATOMA NOTED, RIGHT GROIN DRSG CDI, CRITICORE GUIDRY PATENT DRAINING CLEAR YELLOW URINE, CRITICORE READING 38.8 TEMP, ORAL TEMP 98.4, PREVIOUS SHIFT HAD ADMINISTERED TYLENOL, BILAT LOWER EXT'S WARM, DP PULSE BY DOPPLER ON RIGHT, LEFT PULSES PALPABLE, HEELS BRIDGED, PT DENIES PAIN, EPIDURAL INFUSING @ 10CC/HR WITH 4CC Q15MIN BOLUS AVAILABLE, AIR OVERLAY MATTRESS IN USE, SR UP X 2, BED IN LOW POSITION, CALL LIGHT IN REACH.
--- NOTE | 2017-01-22 19:50 | NUR ---
PT REQUESTING POPSICLE PROVIDED AT THIS TIME, PT DENIES FURTHER NEEDS.
--- NOTE | 2017-01-22 20:15 | NUR ---
EVENING MED GIVEN, PT RESTING EYES CLOSED, RESP SHALLOW, BP STABLE, WILL MONITOR CLOSELY FOR CHANGES.
--- NOTE | 2017-01-22 21:00 | NUR ---
NO VISITORS IN AT THIS TIME.
--- NOTE | 2017-01-22 23:30 | NUR ---
REASSESSMENT COMPLETED, NO CHANGES FROM PREVIOUS ASSESSMENT, PT ASSISTED TO POSITION ONTO LEFT SIDE SUPPORTED WITH PILLOWS, POPSICLE PROVIDED ON REQUEST, NO FURTHER NEEDS VOICED.
[2017-01-23] VITALS (96 sets, daily range): BP systolic 93–148; BP diastolic 62–97
--- NOTE | 2017-01-23 00:20 | NUR ---
RT AT BS FOR BREATHING TX.
--- NOTE | 2017-01-23 00:40 | NUR ---
BREATHING TX REMOVED, PT REPOSITIONED UP IN BED, PT PULLING [phone] ON IS, NONPRODUCTIVE NOTED AFTER, O2 SAT 92-94, WILL CONT TO MONITOR CLOSELY FO CHANGES.
--- NOTE | 2017-01-23 03:30 | NUR ---
RADIOLOGY AT FOR AM CXR, PT REPOSITIONED UP IN BED, ICE CHIPS PROVIDED PER REQUEST, 2ND REASSESSMENT COMPLETED, NO CHANGES FROM PREVIOUS, WEANING CLEVIPREX TOLERATED.
--- NOTE | 2017-01-23 05:30 | NUR ---
AM LAW DRAWN FOR CVL AND SENT TO LAB, PT RESTING IN BED EYES CLOSED, RESP EVEN AND UNLABORED, WILL MONITOR FOR CHANGES.
[2017-01-23 05:55] LABS: HEMATOCRIT 30.5 % (42.0-54.0); HEMOGLOBIN 9.6 g/dL (13.5-17.5); MCH 26.3 pg (26.0-34.0); MCHC 31.5 g/dL (31.0-37.0); MCV 83.6 fL (80.0-100.0); MEAN PLATELET VOLUME 9.2 fL (7.4-10.4); RBC 3.65 10x6/uL (4.20-6.10); RDW 14.8 % (11.5-14.5)
--- NOTE | 2017-01-23 06:00 | NUR ---
FAMILY @ BS UPDATE GIVEN AND QUESTIONS ANSWERED.
[2017-01-23 06:08] LABS: ALBUMIN 2.5 g/dL (3.4-5.0); ALKALINE PHOSPHATASE 45 U/L (46-116); ALT (SGPT) 88 U/L (10-68); BILIRUBIN - TOTAL 0.51 mg/dL (0.2-1.3); CALC OSMOLALITY 294 mosm/kg (275-300); CALCIUM 8.4 mg/dL (8.5-10.1); CHLORIDE - SERUM 112 mmol/L (98-107); CREATININE - SERUM 0.9 mg/dL (0.6-1.3); GLUCOSE 164 mg/dL (74-106); POTASSIUM - SERUM 4.2 mmol/L (3.5-5.1); PROTEIN - SERUM 5.8 g/dL (6.4-8.2); SODIUM 145 mmol/L (136-145); UREA NITROGEN 18 mg/dL (7-18); eGFR NON AFRICAN AMERICAN 90 mL/min (90-120)
--- NOTE | 2017-01-23 08:00 | NUR ---
SHIFT ASSESSMENT VIA FLOWSHEET.
--- NOTE | 2017-01-23 08:55 | NUR ---
DR ORTIZ HERE TO SEE PT, AT BEDSIDE UPDATE PROVIDED.
--- NOTE | 2017-01-23 11:00 | NUR ---
BED BATH AND COMPLETE LINEN CHANGE PROVIDED. ABDOMINAL DRESSING CHANGED PER ORDER. EMMANUEL WNL, NO S/S OF INFECTION NOTED. BETADINE OINTMENT APPLIED, COVERED WITH 4X4 AND MEDIPORE TAPE.
--- NOTE | 2017-01-23 11:30 | NUR ---
REASSESSMENT VIA FLOWSHEET, SEE FOR DETAILS. VSS, SR ON CM. EPIDURAL IN PLACE, PT REPORTS PAIN 0/10. ICE CHIPS PROVIDED PER REQUEST. WILL CONTINUE TO MONITOR.
--- NOTE | 2017-01-23 12:35 | NUR ---
PT PULLING 1500 ON I/S.
--- NOTE | 2017-01-23 13:39 | NUR ---
DR CARRILLO AND HERIBERTO CASSIDY RN AT BEDSIDE TO REMOVE SHEATH IN LEFT GROIN.
--- NOTE | 2017-01-23 13:47 | NUR ---
Nutrition follow-up: Pt NPO except for popsicles, clear liquids at this time Labs reviewed Wt stable RDN monitoring pts diet advancement and tolerance.
--- NOTE | 2017-01-23 14:08 | NUR ---
SHEATH REMOVAL COMPLETE. LEFT GROIN SITE WITHOUT SIGNS OF BLEEDING OR HEMATOMA, PEDAL PULSES PALPABLE IN LEFT FOOT.
--- NOTE | 2017-01-23 15:30 | NUR ---
REASSESSMENT VIA FLOWSHEET SEE FOR DETAILS.
--- NOTE | 2017-01-23 19:15 | NUR ---
SHIFT ASSESSMENT COMPLETE, SEE FLOWSHEET. PATIENT ALERT AND ORIENTED X4, NG TUBE TO LCWS, CANISTER CHANGED. S1S2 NOTED WITH SINUS TACH ON MONITOR WITH A RATE OF 104. EXP WHEEZING WITH LUNG SOUNDS. BREATHING EVEN AND NON-LABORED AT A RATE OF 14. ABDOMEN DISTENDED, NON-TENDER TO PALPATION. HYPOACTIVE BSX4. CRITICORE GUIDRY DRAINING CLEAR YELLOW URINE TO GRAVITY. A-LINE IN RIGHT WRIST, AREA C/D/I WITH DRESSING IN PLACE. GOOD SENSATION IN EXTREMITY, HAND WARM TO TOUCH. INCISIONS TO BOTH LEFT AND RIGHT GROIN, SITES COVERED WITH DRESSINGS. BOTH C/D/I. BOTH WITHOUT HEMATOMA AND BLEEDING. RIGHT PEDAL PULSE DOPPLERED AND PRESENT. LEFT PEDAL PULSE PALPABLE. MIDLINE INCISION WITH DRESSING IS C/D/I. EPIDURAL INFUSING AT 10MLS/HR, SITE COVERED WITH DRESSING AND DRY. DENIES PAIN AT THIS TIME. LEFT SUBCLAVIAN CL IS C/D/I, SEE IV FLOWSHEET FOR DETAILS. TITRATING CLEVIPREX PER BP. VSS, DENIES NEED AT THIS TIME.
--- NOTE | 2017-01-23 21:00 | NUR ---
PATIENT IS RESTING COMFORTABLY, DENIES NEED/PAIN. NIGHT MEDS GIVEN, CLEVIPREX TIRTATED PER BP. VSS.
--- NOTE | 2017-01-23 23:10 | NUR ---
REASSESSMENT VIA FLOWSHEET. SEE FOR DETAILS. NS ON MONITOR WITH HR OF 88. VSS. ABDOMINAL INCISION C/D/I. BILATERAL GROIN C/D/I WITH NO S/S OF BLEEDING/HEMATOMA. LEFT PEDAL PULSE PALPABLE. RIGHT PEDAL PULSE STRONG VIA DOPPLER. EPIDURAL DRESSING DRY. PATIENT DENIES PAIN. WILL MONITOR.
[2017-01-24] VITALS (92 sets, daily range): BP systolic 91–162; BP diastolic 64–98
--- NOTE | 2017-01-24 00:15 | NUR ---
POPSICLE GIVEN PER REQUESTS.
--- NOTE | 2017-01-24 01:05 | NUR ---
PT RESTING IN BED, TURNED TO LEFT SIDE. DENIES NEED AT THIS TIME. VSS.
--- NOTE | 2017-01-24 01:39 | NUR ---
ICE CHIPS GIVEN PER REQUESTS.
--- NOTE | 2017-01-24 03:00 | NUR ---
REASSESSMENT COMPLETE PER FLOWSHEET. SEE FOR DETAILS. NO ACUTE CHANGES AT THIS TIME. CL IN REACH, VSS. DENIES NEED AT THIS TIME.
--- NOTE | 2017-01-24 05:00 | NUR ---
RESTING COMFORTABLY IN BED. VSS.
--- NOTE | 2017-01-24 06:01 | NUR ---
AM LAB DRAWN FROM CVL AND SENT TO LAB. PATIENT RESTING COMFORTABLY IN BED. VSS.
[2017-01-24 06:37] LABS: HEMATOCRIT 30.5 % (42.0-54.0); HEMOGLOBIN 9.6 g/dL (13.5-17.5); MCH 26.2 pg (26.0-34.0); MCHC 31.5 g/dL (31.0-37.0); MCV 83.1 fL (80.0-100.0); MEAN PLATELET VOLUME 9.7 fL (7.4-10.4); RBC 3.67 10x6/uL (4.20-6.10); RDW 14.7 % (11.5-14.5); WBC 7.8 10x3/uL (4.8-10.8)
--- NOTE | 2017-01-24 07:00 | NUR ---
ASSUMED CARE OF PATIENT. SHIFT ASSESSMENT COMPLETE. ART AND CVP LINES ZEROED. PT IS ALERT AND CONVERSANT. DENIES NEEDS AT THIS TIME. HAS CRITICORE GUIDRY. CENTRAL LINE TO LEFT SUBCLAVIAN WITH D5 1/2NS 40K RUNNING AT 100ML/HR, CLEVIPREX AT 12ML/HR. HAS EPIDURAL. DRESSING INTACT AT SITE. NO LEAKING NOTED. RIGHT RADIAL ART LINE. SUPPORT BOARD INTACT, DIGITS ARE WARM AND WNL. SENSATION INTACT. PT HAS NGT TO LIS AT RIGHT NARE. OXYGEN AT 4L OXYMIZER. MIDLINE ABD INCISION, DRESSING INTACT. NO DRAINAGE NOTED. LEFT PEDAL PULSE PALPABLE, RIGHT POSTERIOR TIBIAL NOTED BY DOPPLER.
[2017-01-24 07:12] LABS: ALBUMIN 2.2 g/dL (3.4-5.0); ALKALINE PHOSPHATASE 48 U/L (46-116); ALT (SGPT) 96 U/L (10-68); CALC OSMOLALITY 283 mosm/kg (275-300); CHLORIDE - SERUM 109 mmol/L (98-107); CREATININE - SERUM 0.8 mg/dL (0.6-1.3); GLUCOSE 112 mg/dL (74-106); POTASSIUM - SERUM 3.9 mmol/L (3.5-5.1); PROTEIN - SERUM 5.7 g/dL (6.4-8.2); SODIUM 142 mmol/L (136-145); UREA NITROGEN 13 mg/dL (7-18); eGFR NON AFRICAN AMERICAN > 90 mL/min (90-120)
--- NOTE | 2017-01-24 08:07 | NUR ---
DR WILSON IN TO SEE PATIENT.
--- NOTE | 2017-01-24 09:30 | NUR ---
PT GUIDRY REMOVED, TIP INTACT. SOME SLIGHT BLEEDING NOTED FROM URETHRAL OPENING. RIGHT RADIAL ART LINE REMOVED, TIP INTACT. NO BLEEDING. DR CAGLE CAME AND REMOVED EPIDURAL, TIP INTACT. DRESSINGS TO MIDLINE ABDOMEN ICISION REMOVED. SITE CLEANED WITH IODINE SWABS AND DRESSED WITH POVIDONE IODINE OINTMENT AND COVERED WITH 4X4 AND MEDIPORE TAPE. NO REDNESS OR DRAINAGE NOTED TO INCISION SITE. BILATERAL GROIN DRESSINGS DIRTY AND PARTIALLY REMOVED. REMOVED TO CHECK SITES. SWABBED WITH IODINE AND PLACED GAUZE AND CLEAR DRESSING OVER EACH SITE. NO REDNESS, BLEEDING OR DRAINAGE NOTED.
--- NOTE | 2017-01-24 10:48 | NUR ---
PT RESTING AT THIS TIME. WATCHING TELEVISION. REQUESTED ASSIST TO ROLL TO HIS LEFT SIDE.
--- NOTE | 2017-01-24 12:45 | NUR ---
PT ASSISTED BY PHYSICAL THERAPY UP TO CHAIR AT BEDSIDE. NO DISTRESS.
--- NOTE | 2017-01-24 14:57 | NUR ---
PT ASSISTED BACK INTO BED FROM CHAIR. PT HAS URINATED ANOTHER 100ML.
--- NOTE | 2017-01-24 18:23 | NUR ---
PT RESTING. FAMILY AT BEDSIDE. DENIES NEEDS AT THIS TIME. CALL LIGHT IN REACH.
--- NOTE | 2017-01-24 19:10 | NUR ---
ASSUMED CARE FOR PATIENT, AAOX4, NGT TO RIGHT NARE WITH LIS. S1 S2 NOTED, EXP WHEEZES HEARD WITH LUNG SOUNDS. RR EVEN AND NON LABORED WITH RR OF 19. MIDLINE ABDOMINAL INCISION COVERED WITH DRESSING, C/D/I. BILATERAL GROIN INCISIONS, DRESSINGS C/D/I, NO S/S OF HEMATOMA OR BLEEDING. LEFT PEDAL PULSE PALPABLE, RIGHT PEDAL PULSE PRESENT VIA DOPPLER. LEFT SUBCLAVIAN CL C/D/I. DENIES NEED OR PAIN AT THIS TIME. CL IN REACH.
--- NOTE | 2017-01-24 20:10 | NUR ---
PATIENT URINATED 200MLS.
--- NOTE | 2017-01-24 21:00 | NUR ---
PATIENT INCONTINENT OF URINE. CLEANED UP PATIENT, LINENS CHANGED. NIGHT MEDS GIVEN.
--- NOTE | 2017-01-24 23:00 | NUR ---
REASSESSMENT COMPLETE PER FLOWSHEET. SEE FOR DETAILS. NO ACUTE CHANGES. VSS. RIGHT PEDAL PULSE PRESENT VIA DOPPLER. LEFT PEDAL PULSE PALPABLE. POPSICLE GIVEN PER REQUEST.
[2017-01-25] VITALS (91 sets, daily range): BP systolic 105–142; BP diastolic 52–99
--- NOTE | 2017-01-25 00:15 | NUR ---
INTONTINET OF SMALL AMOUNT OF DIARRHEA. LINENS CHANGED AND PT CLEANED.
--- NOTE | 2017-01-25 01:46 | NUR ---
PATIENT HAD SMALL LOOSE BM IN BEDPAN, CLEANED UP AND REPOSITIONED. URINATED 200MLS.
--- NOTE | 2017-01-25 03:00 | NUR ---
REASSESSMENT COMPLETE. SEE FLOWSHEET FOR DETAILS. VSS, RESTING COMFORTABLY. INCISION SITES C/D/I. RIGHT PEDAL PULSE DOPPLERED, LEFT PEDAL PULSE PALPABLE. DENIES NEED, CL IN REACH.
--- NOTE | 2017-01-25 04:30 | NUR ---
PATIENT BACK FROM X-RAY. TOLERATED WELL. UP IN CHAIR AND CONNECTED TO MONITOR. VSS.
--- NOTE | 2017-01-25 05:30 | NUR ---
LAB DRAWN FROM CVL AND SENT TO LAB.
--- NOTE | 2017-01-25 05:47 | NUR ---
PATIENT INCONTINENT OF STOOL AND URINE, VERY SMALL AMOUNT OF DIARRHEA NOTED. PATIENT CLEANED AND RETURNED TO BED PER REQUEST.
[2017-01-25 05:50] LABS: BASOPHILS 0.1 % (0.0-2.0); EOSINOPHILS 2.6 % (0-7); HEMATOCRIT 31.6 % (42.0-54.0); HEMOGLOBIN 10.3 g/dL (13.5-17.5); IMMATURE GRANULOCYTES 0.7 % (0-5); MCH 26.9 pg (26.0-34.0); MCHC 32.6 g/dL (31.0-37.0); MCV 82.5 fL (80.0-100.0); MEAN PLATELET VOLUME 9.6 fL (7.4-10.4); MONOCYTES 6.8 % (2-11); NEUTROPHILS 75.8 % (40-80); PLATELET COUNT 228 10x3/uL (130-400); RBC 3.83 10x6/uL (4.20-6.10); RDW 14.6 % (11.5-14.5); WBC 8.2 10x3/uL (4.8-10.8)
[2017-01-25 06:06] LABS: CALC OSMOLALITY 291 mosm/kg (275-300); CALCIUM 8.5 mg/dL (8.5-10.1); CARBON DIOXIDE 26.9 mmol/L (21.0-32.0); CHLORIDE - SERUM 109 mmol/L (98-107); CREATININE - SERUM 0.8 mg/dL (0.6-1.3); GLUCOSE 132 mg/dL (74-106); MAGNESIUM - SERUM 1.9 mg/dL (1.8-2.4); PHOSPHOROUS 3.4 mg/dL (2.5-4.9); POTASSIUM - SERUM 3.8 mmol/L (3.5-5.1); SODIUM 145 mmol/L (136-145); UREA NITROGEN 15 mg/dL (7-18); eGFR NON AFRICAN AMERICAN > 90 mL/min (90-120)
--- NOTE | 2017-01-25 07:00 | NUR ---
PT REPORT REC'D, PT CARE ASSUMED, PT AAOX4 LAYING IN BED. PT C/O PAIN RATED 3/10 IN ABDOMEN. REPOSTIONED PT, PROPPED WITH PILLOWS. LEFT SUBCLAVIAN CVL WITH FLUIDS INFUSING, SEE FLOW SHEET. MIDLINE ABDOMINAL INCISION, DRESSING CDI, BILAT GRION INCISIONS, DRESSINGS CDI. BRUISING TO LEFT GROIN. BEDSIDE URINAL NEEDED. LEFT PEDAL PULSE PALPABLE, RIGHT PEDAL PULSE DOPPLER'ED. SHIFT ASSESSMENT COMPELTED, SEE FLOW SHEET. ROOM FREE OF CLUTTER, CALL LIGHT IN REACH, WILL CONTINUE TO MONITOR PT.
--- NOTE | 2017-01-25 09:08 | NUR ---
PT FAMILY AT THE BEDSIDE, ALL QUESTIONS ANSWERED, VSS, WILL CONTINUE TO MONITOR PT.
--- NOTE | 2017-01-25 09:50 | NUR ---
DR. ORTIZ AT THE BEDSIDE
--- NOTE | 2017-01-25 10:21 | NUR ---
XRAY AT THE BEDSIDE FOR KUB
--- NOTE | 2017-01-25 11:00 | NUR ---
PT SITTING UP IN BED, C/O PAIN IN ABDOMEN RATED 8/10, STATES "THE PAIN BUTTON HELPS A LITTLE, BUT I CAN STILL FEEL IT." SHIFT ASSESSMENT COMPLETED, SEE FLOW SHEET. ROOM FREE OF CLUTTER, CALL LIGHT IN REACH, WILL CONTINUE TO MONITOR PT.
--- NOTE | 2017-01-25 11:06 | OP ---
PATIENT NAME: DANIA FISCHER MEDICAL RECORD: [id number] :52 [id number] ADMISSION DATE:01/20/17 SURGEON: PB BRAXTON MD DATE OF OPERATION: 01/20/2017 SURGEON: Pb Braxton MD ANESTHESIA: General endotracheal, Dr. Rizvi. OPERATION PERFORMED: Abdominal aortic aneurysm repair utilizing a 20-mm Hemashield Gold graft. PREOPERATIVE DIAGNOSIS: Large abdominal aortic aneurysm. POSTOPERATIVE DIAGNOSIS: Large abdominal aortic aneurysm. INDICATION FOR OPERATION: Expanding large abdominal aortic aneurysm. FINDINGS AT OPERATION: Large fusiform abdominal aortic aneurysm with a short neck. ESTIMATED BLOOD LOSS: Less than 400 mL. DESCRIPTION OF PROCEDURE: After informed consent, adequate preoperative medication evaluation, the patient was brought to the operating room, placed on the table in the supine position. After induction of general endotracheal anesthesia and application of appropriate monitoring devices, chest, neck, abdomen, and both legs were prepped and draped in a sterile field, utilizing Betadine scrub, alcohol, and Betadine solution. A Betadine-impregnated drape was also used. A median celiotomy incision was made and dissection carried down the fascia. Hemostasis maintained with electrocautery. The linea alba was opened, the abdominal cavity entered, and the lower portion of the ____ opened with a hand in the wound and the abdomen was explored. An NG tube placed. There was no other pathology other than the large abdominal aortic aneurysm. Utilizing a Bookwalter retractor, the retroperitoneum was exposed. The duodenum was mobilized and retroperitoneum opened over the aneurysm. The proximal dissection was performed first identifying the left renal vein and vena cava. The renal arteries were identified bilaterally. A right angle clamp was placed behind the aortic neck and an umbilical tape placed. Attention was then turned distally and the common iliacs were dissected off the surrounding structures except posteriorly bilaterally, enabling placement of a clamp on the soft vessels. The patient was then given a calculated dose of heparin. ACTs were performed every 30 minutes and medicated accordingly. The pressure was lowered and a cross clamp was placed just below the renal arteries. The iliac arteries were also occluded. The aneurysm was opened and hemostasis obtained posteriorly utilizing 2-0 silk sutures and pressure. Hemostasis was assured. The aorta could now be seen clearly and measured and measured to a 20 mm graft. Utilizing a felt strip approximately in a running 2-0 Prolene suture, the proximal anastomosis was fashioned and tested. Hemostasis was assured. There were no leaks from the suture line. The distal anastomosis was then fashioned to the aorta above the iliac arteries utilizing a running 2-0 Prolene suture with a felt strip. All maneuvers to remove trapped air were performed. The clamps were removed sequentially. There was excellent flow through the aneurysm graft. There was no bleeding. The patient was given a calculated dose OPERATIVE REPORT [id number] DANIA FISCHER of protamine to reverse the heparin. Hemostasis was assured. The aneurysm sac was trimmed and closed over the graft utilizing a running 2-0 Vicryl suture. The retroperitoneum was again examined, irrigated with copious amounts of antibiotic solution and normal saline. The retroperitoneum was reperitonealized excluding the duodenum. The bowel was then run and placed back in its anatomic position. The abdomen was again irrigated. The omentum placed back in its anatomic position. The instrument counts and sponge counts were correct times 2. The abdomen was closed in layers utilizing 0 Ethibond on the linea alba, subcutaneous tissue was approximated with 2-0 Vicryl and skin approximated with skin drew. Sterile dressing was applied. The patient tolerated the procedure well and transferred to the CV ICU in satisfactory condition. The graft was a Hemashield Gold knitted double velour vascular graft, 20 mm in diameter. TRANSINT:[id number] Voice Confirmation ID: [id number] DOCUMENT ID: [id number] PB BRAXTON MD at 1106 CC: [id number] DICTATION DATE: 01/20/17 1342 CUSTOMER SUCCESS INTERN: 01/20/172026 ADM IN [place] [id number] [place] [id number]
--- NOTE | 2017-01-25 11:10 | NUR ---
PT AMBULATED APPROX 128 FEET WITH PHYSCIAL THERAPY, PT TOLERATED WELL, VSS, WILL CONTINUE TO MONITOR PT.
--- NOTE | 2017-01-25 11:12 | NUR ---
PT SITTING UP IN CHAIR, VSS, WILL CONTINUE TO MONITOR PT.
--- NOTE | 2017-01-25 13:06 | NUR ---
PT AT THE BEDSIDE, ALL QUESTIONS ANSWERED, VSS, WILL CONTINUE TO MONITOR PT.
--- NOTE | 2017-01-25 13:44 | NUR ---
PT AMBULATED WITH PHYSICAL THERAPY APPROX 260FT, PT TOLERATED WELL. VSS, WILL CONTINUE TO MONITOR PT.
--- NOTE | 2017-01-25 14:04 | NUR ---
REPORT RECD PT CARE ASSUMED AT THIS TIME.
--- NOTE | 2017-01-25 14:43 | NUR ---
PT RESTING QUIETLY AT THIS TIME. NO DISTRESS NOTED. VSS.
--- NOTE | 2017-01-25 17:00 | NUR ---
PT ASSISTED TO CHAIR AT THIS TIME. PT DOES WELL AMBULATING TO CHAIR. VSS.
--- NOTE | 2017-01-25 18:14 | NUR ---
PT RECEIVING BREATHING TX AT THIS TIME. PT AT BEDSIDE FOR VISITATION. PT REMAINS SITTING IN CHAIR COMFORTABLY, OCCATIONAL ABD DISCOMFORT NOTED. VSS. PT REMAINS ON CLEVIPREX DRIP TO MAINTAIN BP PARAMETERS.
--- NOTE | 2017-01-25 18:27 | NUR ---
PT ASSISTED BACK TO BED AT THIS TIME. PT DOES WELL. ALL DRSGS REMAIN DRY AND INTACT INCLUDING MID ABD, AND BILAR GROINS THAT REMAIN SOFT/SUPPLE.
--- NOTE | 2017-01-25 19:10 | NUR ---
REPORT RECEIVED, SHIFT ASSESSMENT COMPLETE PER FLOWSHEET, SEE FOR DETAILS. PATIENT AAOX4, NC@2L WITH SATS 95-98%. S1 S2 NOTED WITH NS ON MONITOR. RR EVEN AND NONLABORED AT A RATE OF 16. ABDOMEN DISTENDED, SOFT TO PALPATION, DENIES TENDERNESS TO PALPATION. NG TUBE TO LIS. MIDLINE ABD INCISION DRESSING C/D/I. PATIENT COMPLAINING OF GAS PAIN COMING AND GOING. STATES IT HAS GOTTEN BETTER WITH THE AMBULATION HE HAS DONE TODAY. BILATERAL GROIN INCISIONS DRESSINGS C/D/I. SLIGHT BRUISING ON LEFT GROIN. PEDAL PULSE DOPPLERED ON RIGHT FOOT, PALPABLE ON LEFT. LEFT SUBCLAVIAN CENTAL LINE C/D/I, SEE IV FLOWSHEET FOR FLUIDS. VSS, CL IN REACH. DENIES NEED, WILL MONITOR.
--- NOTE | 2017-01-25 21:00 | NUR ---
NIGHT MEDS GIVEN, PATIENT DENIES NEED AT THIS TIME. RESTING COMFORTABLY IN BED.
--- NOTE | 2017-01-25 22:40 | NUR ---
HELPED PATIENT UP TO SIDE OF BED DUE TO "GAS PAINS". INCONTINENT OF URINE. LINENS CHANGED AND PT CLEANED.
--- NOTE | 2017-01-25 23:00 | NUR ---
REASSESSMENT COMPLETE PER FLOWSHEET. SEE FOR DETAILS. NO ACUTE CHANGES. VSS.
[2017-01-26] VITALS (84 sets, daily range): BP systolic 110–142; BP diastolic 59–98
--- NOTE | 2017-01-26 01:00 | NUR ---
PATIENT RESTING QUIETLY IN BED, VSS.
--- NOTE | 2017-01-26 01:50 | NUR ---
ASSISSTED PATIENT UP TO CHAIR.
--- NOTE | 2017-01-26 03:00 | NUR ---
REASSESSMENT COMPLETE. NO CHANGES. SEE FLOWSHEET FOR DETAILS.
--- NOTE | 2017-01-26 03:30 | NUR ---
VOIDED 250MLS OF IZZY COLORED URINE.
--- NOTE | 2017-01-26 05:15 | NUR ---
BACK FROM X-RAY. PATIENT TOLERATED WELL. RETURNED TO BED AND HOOKED TO MONITOR. VSS.
[2017-01-26 06:15] LABS: HEMATOCRIT 31.8 % (42.0-54.0); HEMOGLOBIN 10.3 g/dL (13.5-17.5); MCH 26.7 pg (26.0-34.0); MCHC 32.4 g/dL (31.0-37.0); MCV 82.4 fL (80.0-100.0); MEAN PLATELET VOLUME 9.6 fL (7.4-10.4); RBC 3.86 10x6/uL (4.20-6.10); RDW 14.5 % (11.5-14.5); WBC 9.3 10x3/uL (4.8-10.8)
[2017-01-26 06:31] LABS: ALBUMIN 2.4 g/dL (3.4-5.0); ALKALINE PHOSPHATASE 59 U/L (46-116); ALT (SGPT) 122 U/L (10-68); CALC OSMOLALITY 284 mosm/kg (275-300); CALCIUM 8.4 mg/dL (8.5-10.1); CARBON DIOXIDE 23.9 mmol/L (21.0-32.0); CHLORIDE - SERUM 106 mmol/L (98-107); CREATININE - SERUM 0.9 mg/dL (0.6-1.3); GLUCOSE 133 mg/dL (74-106); POTASSIUM - SERUM 3.8 mmol/L (3.5-5.1); PROTEIN - SERUM 6.3 g/dL (6.4-8.2); SODIUM 140 mmol/L (136-145); eGFR NON AFRICAN AMERICAN 90 mL/min (90-120)
[2017-01-26 06:34] LABS: UREA NITROGEN 24 mg/dL (7-18)
--- NOTE | 2017-01-26 07:15 | NUR ---
ASSESSMENT COMPLETE. AAO X4. PAIN 4/10 AT INCISION. S1S2 NOTED, RADIAL PULSES PALP. LT PEDAL PULSE PALP, RT PEDAL PULSE FOUND BY DOPPLER. NSR ON MONITOR WITH HR 73-88. 2L NC. CLEAR RUL, RML, ROGER. DIMINISHED LLL, RLL. NGT TO LIS WITH GREEN OUTPUT. DIET IS SMALL AMOUNT OF ICE CHIPS. HYPOACTIVE BOWEL SOUNDS X4, DISTENDED ABDOMEN, FIRM, DENIES TENDERNESS, SAYS HE IS PASSING GAS. RT AND LT GROIN DRESSINGS INTACT, SOFT, NONTENDER. MIDABDOMINAL LINE DRESSING INTACT. WILL CHANGE THIS AM. LT SC CVL, SEE IV FLOWSHEET. 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 ASSISTED PATIENT UP TO CHAIR. STABLE ON FEET BUT DOES NEED ASSISTANCE WITH MANUEVERING IV POLE. SOME INCONTINENCE WITH URINE. WILL CONTINUE TO MONITOR. SEE FLOWSHEET FOR ADDITIONAL DETAILS.
--- NOTE | 2017-01-26 08:15 | NUR ---
ASSISTED PATIENT TO TOILET, NO BM BUT PT DID SAY HE PASSED GAS. PUT BACK TO CHAIR.
--- NOTE | 2017-01-26 09:02 | NUR ---
DRESSING ON ABDOMEN CHANGED. EMMANUEL INTACT, NO DRAINAGE FROM INCISION NOTED. BETADINE APPLIED. GAVE MEDS VIA NGT, CLAMPED NGT
--- NOTE | 2017-01-26 10:45 | NUR ---
I/S COMPLETED, 1500 REACHED X10. ENCOURAGED PATIENT TO DO I/S HOURLY
--- NOTE | 2017-01-26 11:08 | NUR ---
DANIA WITH PT WALKING PATIENT. PT C/O HAVING TO STRAIN WHEN TRYING TO PASS GAS.
--- NOTE | 2017-01-26 11:29 | NUR ---
GOT PATIENT TO TOILET PER PATIENT REQUEST. NO BM AT THIS TIME, PUT BACK IN CHAIR.
--- NOTE | 2017-01-26 11:45 | NUR ---
REASSESSMENT COMPLETE, SEE FLOWSHEET FOR DETAILS.
--- NOTE | 2017-01-26 12:09 | NUR ---
DR. ORTIZ AT BEDSIDE. 1212: DR. WILSON AT BEDSIDE.
--- NOTE | 2017-01-26 12:25 | NUR ---
REMOVED NGT PER ORDER. PT TOLERATED WELL.
--- NOTE | 2017-01-26 13:26 | NUR ---
PATIENT REQUESTS CHICKEN BROTH, ROSMERY MIST, AND CRANBERRY JUICE. ORDER PLACED FOR CHICKEN BROTH. EDUCATED PATIENT ON SIPPING ROSMERY MIST AND CRANBERRY JUICE SLOWLY TO AVOID MORE ABDOMINAL DISCOMFORT.
--- NOTE | 2017-01-26 15:30 | NUR ---
REASSESSMENT COMPLETE, SEE FLOWSHEET FOR CHANGES. PENILE SWELLING NOTICED. PATIENT UP TO CHAIR.
--- NOTE | 2017-01-26 17:05 | NUR ---
PATIENT ATE 30% OF DINNER TRAY OF FULL LIQUID DIET AND REPORTED FEELING "FULL." DENIED NEEDS.
--- NOTE | 2017-01-26 19:58 | NUR ---
REPORT RECIEVED. ASSESSMENT COMPLETE PER FLOW SHEET. VSS. PT AWAKE ALERT ORIENTED X3. DENIES PAIN OR NEEDS. VSS. O2 VIA NC 3L O2 SAT 98% RR 16 RUL RML ROGER CLEAR BILAT LOWER LOBES DEMINISHED. HEART S1S2 HR 99 NSR. BP 118/61. ABD DISTENDED SOFT TENDER BS ACTIVE X4. BILAT RADIAL PULSES PALP +2 R PEDAL PULSE PALP +2 L PEDAL PULSE VIA DOPPLER. SCD'S ON. L SUBCLAVIAN PATENT DRSG CDI. DENIES NEEDS. WILL CONTINUE TO MONITOR.
--- NOTE | 2017-01-26 20:55 | NUR ---
PT OOB TO CHAIR WITHOUT DIFFICULTY. NO NEW FINDNIGS. VSS. NEEDS MET.
--- NOTE | 2017-01-26 21:24 | NUR ---
PT BACK TO BED WITHOUT DIFFICULTY. VSS. NO NEW CHANGES.
--- NOTE | 2017-01-26 21:40 | NUR ---
COMPLETE BB LINEN CHANGE COMPLETE. PT INCONTINENT OF URINE X1. NEEDS MET.
--- NOTE | 2017-01-26 23:30 | NUR ---
REASSESSMENT COMPLETE PER FLOW SHEET. VSS. NO NEW CHANGES. RESTING COMFORTABLY. WILL CONTINUE TO MONITOR.
[2017-01-27] VITALS (41 sets, daily range): BP systolic 121–157; BP diastolic 72–109
--- NOTE | 2017-01-27 00:40 | NUR ---
ASSISTED TO CHAIR. GIVEN CRANBERRY JUICE AND SPRITE PER REQUEST. DENIES PAIN OR FURTHER NEEDS. VSS. NO NEW CHANGES.
--- NOTE | 2017-01-27 01:30 | NUR ---
ASSISTED BACK TO BED. DENIES FURTHER NEEDS.
--- NOTE | 2017-01-27 02:16 | NUR ---
ASSISTED TO CHAIR. DENIES FURTHER NEEDS. 120 CC IZZY URINE NOTED VIA URINAL.
--- NOTE | 2017-01-27 02:50 | NUR ---
ASSISTED BACK TO BED DENIES FURTHER NEEDS.
--- NOTE | 2017-01-27 03:26 | NUR ---
REASSESSMENT COMPLETE PER FLOW SHEET. VSS. NO NEW CHANGES. ASSISTED TO BEDSIDE COMMODE. 75 CC IZZY URINE NOTED. VSS WILL CONTINUE TO MONITOR.
--- NOTE | 2017-01-27 04:26 | NUR ---
PT TO PA/LAT WITHOUT DIFFICULTY. NO NEW FINDINGS. VSS.
[2017-01-27 06:10] LABS: BASOPHILS 0.1 % (0.0-2.0); EOSINOPHILS 3.5 % (0-7); HEMATOCRIT 30.2 % (42.0-54.0); HEMOGLOBIN 9.7 g/dL (13.5-17.5); IMMATURE GRANULOCYTES 1.3 % (0-5); LYMPHOCYTES 14.7 % (15-50); MCH 26.4 pg (26.0-34.0); MCHC 32.1 g/dL (31.0-37.0); MCV 82.3 fL (80.0-100.0); MEAN PLATELET VOLUME 9.7 fL (7.4-10.4); MONOCYTES 10.8 % (2-11); NEUTROPHILS 69.6 % (40-80); PLATELET COUNT 316 10x3/uL (130-400); RBC 3.67 10x6/uL (4.20-6.10); RDW 14.6 % (11.5-14.5); WBC 9.3 10x3/uL (4.8-10.8)
[2017-01-27 06:33] LABS: ALBUMIN 2.5 g/dL (3.4-5.0); ALKALINE PHOSPHATASE 54 U/L (46-116); ALT (SGPT) 110 U/L (10-68); BILIRUBIN - TOTAL 1.25 mg/dL (0.2-1.3); CALC OSMOLALITY 284 mosm/kg (275-300); CALCIUM 8.6 mg/dL (8.5-10.1); CARBON DIOXIDE 23.3 mmol/L (21.0-32.0); CHLORIDE - SERUM 107 mmol/L (98-107); CREATININE - SERUM 0.9 mg/dL (0.6-1.3); GLUCOSE 122 mg/dL (74-106); PROTEIN - SERUM 6.3 g/dL (6.4-8.2); SODIUM 139 mmol/L (136-145); UREA NITROGEN 29 mg/dL (7-18); eGFR NON AFRICAN AMERICAN 90 mL/min (90-120)
[2017-01-27 06:35] LABS: POTASSIUM - SERUM 4.4 mmol/L (3.5-5.1)
--- NOTE | 2017-01-27 07:00 | NUR ---
SHIFT ASSESSMENT COMPLETE. SEE FLOW SHEET FOR FINDINGS. PT MIDLINE ABDOMEN DRESSING IS INTACT, CLEAN AND DRY. PT HAS EDEMA TO SCROTUM AND PENIS. EDEMA IN LOWER LEGS, NON-PITTING. BILATERAL PEDAL PULSES VIA DOPPLER. PT ON ROOM AIR. AIR OVERLAY MATTRESS. LEFT SUBCLAVIAN CENTRAL LINE, DRESSING INTACT.
--- NOTE | 2017-01-27 09:03 | NUR ---
Nutrition follow-up: Diet advanced to full liquids PO intake ~25% at this time Pt reports getting full very fast labs reviewed Edema Will provide full liquid trays; RDN will order Ensure with meals. RDN following.
--- NOTE | 2017-01-27 10:12 | NUR ---
PT ASSISTED UP TO TOILET. HAS HAD DIARRHEA. WAS GIVEN PRUNE JUICE AND SPRITE OVERNIGHT TO HELP MOVE BOWELS. HAS TWO EPISODES OF INCONTINENCE OF URINE.
--- NOTE | 2017-01-27 10:59 | NUR ---
PT ASSISTED UP TO TOILET. HAS HAD EPISODE OF INCONTINENCE OF BOWEL. ALSO INCONTINENT OF URINE. PT CLEANED UP, NEW LINENS PLACED AND NEW GOWN.
--- NOTE | 2017-01-27 11:45 | NUR ---
PT ASSISTED UP TO TIOLET. HAS HAD ANOTHER EPISODE OF DIARRHEA. AGAIN UNABLE TO MEASURE URINE OUTPUT. PT THEN SEATED IN CHAIR AT BEDSIDE FOR LUNCH.
--- NOTE | 2017-01-27 13:33 | NUR ---
PT ASSISTED UP TO TOILET AGAIN FOR BOWEL MOVEMENT. HAS DIARRHEA. UNABLE TO MEASURE URINE OUTPUT
--- NOTE | 2017-01-27 14:02 | NUR ---
PT UP WALKING WITH PHYSICAL THERAPY. NO DISTRESS NOTED.
--- NOTE | 2017-01-27 14:30 | NUR ---
PT ASSISTED UP TO TOILET FOR BOWEL MOVEMENT. LOOSE BM THIS TIME, SOME FORMED PIECES. UNABLE TO MEASURE URINE OUTPUT.
--- NOTE | 2017-01-27 16:00 | NUR ---
PT PERIPHERAL PULSES LOCATED BY DOPPLER IN RIGHT AND LEFT FEET.
--- NOTE | 2017-01-27 16:21 | NUR ---
PT ASSISTED UP TO TOILET. UP IN CHAIR AT BEDSIDE AT THIS TIME.
--- NOTE | 2017-01-27 17:00 | NUR ---
PT UP IN CHAIR AT BEDSIDE. DINNER TRAY ONLY PARTIALLY EATEN. PT STATES "JUST DOESN'T TASTE GOOD, NOTHING DOES"
--- NOTE | 2017-01-27 19:20 | NUR ---
REPORT REC'D AND CARE ASSUMED, REC'D PT AWAKE, ALERT, ORIENTED X 4 ON ROOM AIR, LDLSCL DRSG CDI WITH D51/2NS WITH 40KCL INFUSING @ 50CC/HR, MIDLINE ABD DRSG CDI, ABD SLIGHTLY DISTENDED, PT DENIES TENDERNESS, STATES " I HAVE BEEN GOING TO THE BATHROOM TODAY", ADULT BRIEF IN PLACE AND DRY, GENERALIZED EDEMA, PP BY DOPPLER, PT DENIES PAIN OR OTHER NEEDS AT THIS TIME, CALL LIGHT IN REACH.
--- NOTE | 2017-01-27 20:00 | NUR ---
COMPLETE BATH AND LINEN CHANGE PROVIDED, PT ASSISTED BACK TO BED PER REQUEST, REPOSITIONED SELF UP IN BED, DENIES PAIN OR OTHER NEEDS, CALL LIGHT IN REACH , BED IN LOW POSITION.
--- NOTE | 2017-01-27 21:10 | NUR ---
EVENING MEDS GIVEN, NO VISITORS IN AT THIS TIME
--- NOTE | 2017-01-27 21:45 | NUR ---
PT UNCOMFORTABLE IN BED, STATES " I HAVE WET MYSELF", ADULT BRIEF SATURATED, PT ASSISTED UP TO BATHROOM TO VOID THEN BACK TO RECLINER, PT STATES " I CAN'T GET COMFORTABLE", WARM BLANKET PROVIDED, CALL LIGHT AND BS TABLE WITHIN REACH.
--- NOTE | 2017-01-27 22:15 | NUR ---
PT WANTING TO GET BACK IN BED, ADULT BRIEF WET, PERICARE PROVIDED AND BRIEF CHANGED, PT ASSISTED BACK TO BED, SR UP X 2, CALL LIGHT IN REACH.
--- NOTE | 2017-01-27 23:30 | NUR ---
PT UNABLE TO SLEEP, ASSISTED PT UP TO BATHROOM TO VOID, INCONTINENT IN BRIEF, PERICARE PROVIDED AND BRIEF CHANGED, PT ASSISTED TO RECLINER PER REQUEST, ICE WATER PROVIDED AND WARM BLANKET, CALL LIGHT IN REACH, PT INSTRUCTED NOT TO GET UP WITHOUT ASSISTANCE, VERBALIZES UNDERSTANDING.
--- NOTE | 2017-01-27 23:45 | NUR ---
PT STATES "THIS ISN'T COMFORTABLE I WANT BACK IN THE BED", PT ASSISTED TO BATHROOM TO VOID THEN BACK TO BED PER REQUEST, HEELS BRIDGED, VSS, WILL CONT TO MONITOR FOR CHANGES.
--- NOTE | 2017-01-27 23:50 | NUR ---
PT PROVIDED NORCO ON REQUEST, PT COMPLAINS OF RIGHT LEG AND FOOT PAIN PT NOTED TO BE LIMPING SOME AT TIMES WHEN GOING TO BATHROOM, PULSES BY DOPPLER, WILL MONITOR FOR CHANGES.
[2017-01-28] VITALS (8 sets, daily range): BP systolic 128–147; BP diastolic 76–86
--- NOTE | 2017-01-28 00:10 | NUR ---
PT UNCOMFORTABLE IN BED, ASSISTED PT UP TO BATHROOM AND THEN TO RECLINER, LEGS ELEVATED ON PILLOWS PER REQUEST, CALL LIGHT IN REACH.
--- NOTE | 2017-01-28 00:45 | NUR ---
PT STATES " I AM READY TO GO BACK TO BED", ASSISTED BACK TO BED, SR UP X 2, CALL LIGHT IN REACH.
--- NOTE | 2017-01-28 01:40 | NUR ---
PT ASSISTED UP TO BATHROOM TO VOID, VOIDED 100CC DARK YELLOW URINE, PERICARE PROVIDED AND ADULT BRIEF NOTED TO BE WET, CHANGED AT THIS TIME, PT ASSISTED BACK TO BED, SR UP X 2, CALL LIGHT IN REACH.
--- NOTE | 2017-01-28 02:20 | NUR ---
PT ASSISTED UP TO BATHROOM AND THEN TO RECLINER, COFFEE AND WARM BLANKET PROVIDED, PT DENIES FURTHER NEEDS.
--- NOTE | 2017-01-28 02:50 | NUR ---
PT REQUESTING PA AND LATERAL DONE NOW IF POSSIBLE WHILE HE IS UP, RADIOLOGY CALLED AND INFORMED OF PT'S WISHSES.
--- NOTE | 2017-01-28 03:00 | NUR ---
RADIOLOGY AT BS TO TAKE PT FOR PA AND LATERAL.
--- NOTE | 2017-01-28 03:10 | NUR ---
PT RETURNED FROM RADIOLOGY, MONITORS REESTABLISHED AND PT ASSISTED BACK TO BED PER REQUEST, PT TOLERATED WELL, HOB ELEVATED AND COFFEE PROVIDED ON REQUEST.
--- NOTE | 2017-01-28 04:00 | NUR ---
PT RESTING IN BED ON ROOM AIR EYES CLOSED, RESP EVEN AND UNLABORED, VSS, WILL CONT TO MONITOR FOR CHANGES.
--- NOTE | 2017-01-28 05:30 | NUR ---
PT REQUESTING TO GET UP TO BATHROOM, ASSISTED UP, PT HAD SMALL SOFT STOOL, PERICARE GIVEN AND BRIEF CHANGED, ASSISTED PT BACK TO BED, WILL MONITOR FOR CHANGES.
--- NOTE | 2017-01-28 05:45 | NUR ---
PT REQUESTING COFFEE, COFFEE PROVIDED, PT REPOSITIONED IN BED FOR COMFORT, NO FURTHER NEEDS VOICED.
[2017-01-28 06:09] LABS: BASOPHILS 0.2 % (0.0-2.0); EOSINOPHILS 2.9 % (0-7); HEMATOCRIT 30.5 % (42.0-54.0); HEMOGLOBIN 9.6 g/dL (13.5-17.5); IMMATURE GRANULOCYTES 1.3 % (0-5); LYMPHOCYTES 19.8 % (15-50); MCH 26.1 pg (26.0-34.0); MCHC 31.5 g/dL (31.0-37.0); MCV 82.9 fL (80.0-100.0); MEAN PLATELET VOLUME 9.5 fL (7.4-10.4); MONOCYTES 12.8 % (2-11); RBC 3.68 10x6/uL (4.20-6.10); RDW 14.6 % (11.5-14.5); WBC 9.8 10x3/uL (4.8-10.8)
--- NOTE | 2017-01-28 06:15 | NUR ---
PT RESTING QUIETLY IN BED WATCHING TV, NO VISITORS IN AT THIS TIME
[2017-01-28 06:26] LABS: ANION GAP 15.4 mmol/L (8-16); CALCIUM 8.6 mg/dL (8.5-10.1); MAGNESIUM - SERUM 2.1 mg/dL (1.8-2.4); PHOSPHOROUS 4.2 mg/dL (2.5-4.9); POTASSIUM - SERUM 4.4 mmol/L (3.5-5.1)
[2017-01-28 06:31] LABS: CREATININE - SERUM 1.2 mg/dL (0.6-1.3)
[2017-01-28 06:46] LABS: PLATELET COUNT 392 10x3/uL (130-400)
--- NOTE | 2017-01-28 07:45 | NUR ---
PT UP IN CHAIR FOR BREAKFAST. HAS BEEN UP TO TOILET.
[2017-01-28] MEDS ORDERED: HYDROCODONE-APA1 TAB PO (08:44)
[2017-01-28] MEDS ORDERED: BENADRYL25 MG PO (09:30)
[2017-01-28] MEDS ORDERED: PLAVIX75 MG PO (09:30)
[2017-01-28] MEDS ORDERED: BACTRIM DS TABL1 TAB PO (09:30)
[2017-01-28] MEDS ORDERED: ASPIRIN81 MG PO (09:31)
--- NOTE | 2017-01-28 09:55 | NUR ---
PT HAS ORDERS FOR DISCHARGE. FOLLOW UP APPOINTMENT AND MEDICATIONS REVIEWED WITH PATIENT BY RAMESH CHAPMAN. DRESSINGS REMOVED FROM ABDOMEN AND LEFT OPEN TO AIR. APPOINTMENT CARD AND PRESCRIPTION FOR HYDROCODONE LEFT WITH ME UNTIL READY TO DISCHARGE. APPOINTMENT WITH DR SHANNON MADE FOR 1 WEEK HE REQUESTED THIS MORNING. DR CHOU HAS BEEN PAGED FOR F/U APPOINTMENT TIME FRAME. PT ASSISTED WITH PUTTING ON PANTS. HE HAS CALLED HIS TO NOTIFY HER OF DISCHARGE.
--- NOTE | 2017-01-28 10:15 | NUR ---
CENTRAL LINE TO LEFT SUBCLAVIAN REMOVED. TIP INTACT. SITE COVERED WITH GAUZE AND CLEAR DRESSING. NO BLEEDING NOTED.
--- NOTE | 2017-01-28 10:33 | NUR ---
SPOKE WITH DR CHOU. WANTS 4 WEEK F/U WITH DR HANSON.
--- NOTE | 2017-01-28 10:34 | NUR ---
Patient Name: DANIA FISCHER Encounter No: [id number] : 1950 Primary Insurance: [employer] Anticipated DC Date: 01-28-2017 Planned Disposition: Home External Planned Provider: DR ORTIZ DCP follow-up note: CM MET WITH PATIENT TO RE-ASSESS DC PLAN. PT STATED HE PLANS TO DISCHARGE HOME WITH HIS AND THAT HIS WILL DRIVE HIM HOME. HE VOICED NO NEED FOR HH/REHAB SERVICES/DME AND PLANS TO FOLLOW UP WITH DR ORTIZ ON 02/03/17. NO DISCHARGE NEEDS WERE VOICED. CM WILL FOLLOW AND ASSIST NEEDED. Amna Sweet RN, CM
--- NOTE | 2017-01-28 11:27 | NUR ---
PT DISCHARGE INSTRUCTIONS PROVIDED TO HIM AND . CARD FOR FOLLOW UP WITH DR ORTIZ AND PRINTED PRESCRIPTION GIVEN TO . RAMESH CHAPMAN WENT OVER DISCHARGE MEDICATIONS WITH PT AND . INSTRUCTED NOT TO DRIVE FOR 2 WEEKS, NO HEAVY LIFTING, NO STRAINING FOR BOWEL MOVEMENT.S FOLLOW UP APPOINTMENTS WITH DR ORTIZ, SHIVA AND JOSÉ ANTONIO REVIEWED AND HIGHLIGHTED IN DISCHARGE PAPERS. PT ESCORTED TO AWAITING VEHICLE BY WHEELCHAIR.
--- NOTE | 2017-02-07 13:49 | CN ---
PATIENT NAME:DANIA FISCHER MEDICAL RECORD: [id number] : 54 LOCATION:[facility] ADMIT DATE: 01/20/17 ACCOUNT: [id number] CONSULTING PHYSICIAN: ANAT HANSON MD REFERRING PHYSICIAN: PB ORTIZ MD DATE OF CONSULTATION: 01/22/2017 CONSULT REQUESTING PHYSICIAN: Pb Ortiz MD. REASON FOR CONSULTATION: Hypoxia, wheezing and shortness of breath. HISTORY OF PRESENT ILLNESS: Mr. Fischer is a 66-year-old gentleman who underwent AAA repair on the 20 of January. Yesterday, he went to having a stent placement in the right lower extremity and the patient became wheezing and started having shortness of breath. His oxygen requirement increased from 2 liters nasal cannula to 5-6 liters nasal cannula. According to the patient, he has a history of smoking more than 2 packs per day for almost more than 40 years. The patient claimed that he was never diagnosed with COPD and never had any shortness of breath. REVIEW OF SYSTEMS: Mainly in the history of present illness. PAST MEDICAL HISTORY: 1. Hypertension. 2. Hyperlipidemia. 3. Hypokalemia. PAST SURGICAL HISTORY: He is status post AAA repair. He is also status post stent placement in the right lower extremity. ALLERGIES: There are no known drug allergies. PRESENT MEDICATIONS: On TapTap is reviewed. PERSONAL AND SOCIAL HISTORY: The patient is and lives with his . He is smoking almost 2 packs per day from his teenage. He still continued to smoke until the time of the surgery. He is a nondrinker. FAMILY HISTORY: His mother is diabetic and she has a CVA. PHYSICAL EXAMINATION: GENERAL: Now, the patient is lying comfortably in bed. He is not in acute distress. VITAL SIGNS: The blood pressure is 140/71, pulse is 106, respirations 17, temperature is 100.8, SpO2 is 94% on 5 liter oxymizer. HEENT: Conjunctivae pink, sclerae nonicteric. NECK: Supple. No JVD. CHEST: Excursion is minimal on both sides. There is wheezing on forceful expiration. HEART: Rhythm regular, normal sound, no murmur. ABDOMEN: Soft. Bowel sounds present. No hepatosplenomegaly. RECTAL: Deferred. EXTREMITIES: No cyanosis, no clubbing and no pedal edema. SKIN: Warm, normal turgor. CENTRAL NERVOUS SYSTEM: The patient is awake and alert. There is no obvious CONSULT REPORT [id number] DANIA FISCHER cranial nerve abnormality. The gait was not tested. LABORATORY DATA: ABG: The pH was 7.46, pCO2 is 36.6, the pO2 is 81, the bicarb is 26. This was done on 6 liters nasal cannula. CBC: The WBC is 9.2, hemoglobin 10.3, hematocrit 32.1 and the platelet count is 184. Chemistry: Sodium 143, potassium 4.2, BUN is 20 and creatinine 1.1. IMPRESSION: 1. Acute hypoxic respiratory failure, rule out pulmonary embolism, rule out pneumonia. 2. Tobacco dependence syndrome, most likely underlying chronic obstructive pulmonary disease. 3. Peripheral arterial disease. 4. Hypertension. 5. Status post abdominal aortic aneurysm repair. RECOMMENDATION: 1. The patient will consult to quit smoking. 2. Has to continue Xopenex and ipratropium nebulizer. 3. Add Brovana and budesonide nebulizer. 4. I will check the CTA of the chest to rule out PE, rule out pneumonia. 5. DVT prophylaxis. Dr. Ortiz, once again thank you for involving me in the care of Mr. Fischer. TRANSINT:[id number] Voice Confirmation ID: [id number] DOCUMENT ID: [id number] ANAT HANSON MD at 1349 CC: PB ORTIZ MD [id number] DICTATION DATE: 01/22/17 1052 COVERING MACHINE OPERATOR: 01/22/17 1906 DIS IN 01/28/17 [facility] [address] [place] [address]
--- NOTE | 2017-02-09 12:51 | DS ---
PATIENT:SHLOMO FISCHER :[birth year] MEDICAL RECORD: [id number] DISCHARGE SUMMARY ADMISSION DATE: 01/20/17 DISCHARGE DATE: 01/28/17 DISCHARGE DIAGNOSES: 1. Large abdominal aortic aneurysm without rupture. 2. Acute respiratory failure with hypoxia postoperatively. 3. Atelectasis. 4. 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 5. Thrombosis of right iliac artery. 6. Essential hypertension. 7. Hyperlipidemia. 8. Nicotine dependence. 9. Aneurysm of the right popliteal artery. 10. Rash secondary to antibiotic. DISCHARGE MEDICATIONS: Please see medical reconciliation form. DISPOSITION: The patient was discharged home and has an appointment to see Dr. Ortiz in 2-3 weeks. HOSPITAL COURSE: Mr. Shlomo Fischer was admitted to the hospital and underwent abdominal aortic aneurysm resection and replacement with a tube graft. Postoperatively, he did well hemodynamically. However, he developed pain in his right leg and decreased perfusion. A CT scan demonstrated total occlusion of the right iliac artery. Dr. Pfeiffer of interventional radiology used AngioJet and stenting of the proximal iliac artery with a good result and return of perfusion of his right lower extremity and foot. His pain was relieved. He developed atelectasis due to chronic tobacco use and postoperative status with the help of pulmonary medicine. He was given vigorous pulmonary toilet and progressed well. He developed some mild pneumonitis in his right lung that responded to antibiotics. At the time of discharge, he is ambulating, taking a diet and eager to go home. He has been given discharge instructions and wound precautions and will be seen as above. TRANSINT:[id number] Voice Confirmation ID: [id number] DOCUMENT ID: [id number] CAREY ORTIZ MD at 1251 CC: [id number] DICTATION DATE: 02/08/17 1129 PAINT TESTER: 02/08/17 1225 DIS IN 01/28/17 [place] [id number] [place] [id number]
== END 2017-01-28 11:30 | disposition home or self-care (01) | DRG 270 ==
LOC: D.SDCHOLD 05:17 → D.CVICU 05:17 → D.SDCHOLD 07:30 → D.CVICU 13:17
PROVIDERS: Family Medicine; Internal Medicine Pulmonary Disease; ADMIT Internal Medicine Cardiovascular Disease
PROC: 04V00DZ Restriction of Abdominal Aorta with Intraluminal Device, Open Approach (ICD-10-PCS; principal; 2017-01-20 07:30)
PROC: 047C3DZ Dilation of Right Common Iliac Artery with Intraluminal Device, Percutaneous Approach (ICD-10-PCS; 2017-01-21)
PROC: 04CC3ZZ Extirpation of Matter from Right Common Iliac Artery, Percutaneous Approach (ICD-10-PCS; 2017-01-21)
DX: I71.4 Abdominal aortic aneurysm, without rupture (principal); J96.01 Acute respiratory failure with hypoxia; J69.0 Pneumonitis due to inhalation of food and vomit; I70.92 Chronic total occlusion of artery of the extremities; I74.5 Embolism and thrombosis of iliac artery; J95.89 Other postprocedural complications and disorders of respiratory system, not elsewhere classified; J98.11 Atelectasis; I10 Essential (primary) hypertension; E78.5 Hyperlipidemia, unspecified; F17.200 Nicotine dependence, unspecified, uncomplicated; I70.201 Unspecified atherosclerosis of native arteries of extremities, right leg; I72.4 Aneurysm of artery of lower extremity; Y83.9 Surgical procedure, unspecified as the cause of abnormal reaction of the patient, or of later complication, without mention of misadventure at the time of the procedure; Y95 Nosocomial condition; L27.0 Generalized skin eruption due to drugs and medicaments taken internally; N48.89 Other specified disorders of penis; T37.8X5A Adverse effect of other specified systemic anti-infectives and antiparasitics, initial encounter; T36.1X5A Adverse effect of cephalosporins and other beta-lactam antibiotics, initial encounter; Y92.230 Patient room in hospital as the place of occurrence of the external cause; Y83.8 Other surgical procedures as the cause of abnormal reaction of the patient, or of later complication, without mention of misadventure at the time of the procedure

== ENCOUNTER → 2017-02-13 10:32 | Outpatient (CLI) | payer BC ==
[2017-01-21 15:08] VITALS: BMI 33.8
[~2017-02-13 10:32] MED LIST changes: +ASPIRIN81 MG PO; +BACTRIM DS TABL1 TAB PO; +BENADRYL25 MG PO; +PLAVIX75 MG PO
[2017-02-13 11:43] LABS: HEMOGLOBIN 10.5 g/dL (13.5-17.5); MCH 26.3 pg (26.0-34.0); MCHC 31.8 g/dL (31.0-37.0); MCV 82.7 fL (80.0-100.0); MEAN PLATELET VOLUME 9.2 fL (7.4-10.4); RBC 3.99 10x6/uL (4.20-6.10); RDW 14.7 % (11.5-14.5)
[2017-02-13 11:58] LABS: CALC OSMOLALITY 268 mosm/kg (275-300); CALCIUM 9.2 mg/dL (8.5-10.1); CHLORIDE - SERUM 101 mmol/L (98-107); CREATININE - SERUM 0.9 mg/dL (0.6-1.3); GLUCOSE 104 mg/dL (74-106); POTASSIUM - SERUM 3.9 mmol/L (3.5-5.1); SODIUM 135 mmol/L (136-145); UREA NITROGEN 10 mg/dL (7-18); eGFR NON AFRICAN AMERICAN 90 mL/min (90-120)
== END | disposition home or self-care (01) ==
LOC: D.LAB 10:32
PROVIDERS: Internal Medicine Cardiovascular Disease
DX: J90 Pleural effusion, not elsewhere classified (principal); D64.9 Anemia, unspecified

== ENCOUNTER → 2017-09-16 10:49 | Outpatient (CLI) | payer BC ==
[2017-01-21 15:08] VITALS: BMI 33.8
== END | disposition home or self-care (01) ==
LOC: D.US 10:49
DX: I73.9 Peripheral vascular disease, unspecified (principal)

== ENCOUNTER → 2017-10-16 10:01 | Outpatient (CLI) | payer BC ==
[2017-01-21 15:08] VITALS: BMI 33.8
== END | disposition home or self-care (01) ==
LOC: D.CT 10:01
DX: I73.9 Peripheral vascular disease, unspecified (principal)

== ENCOUNTER → 2017-12-01 07:42 | Outpatient (CLI) | payer MEDICARE, OTHER ==
[2017-01-21 15:08] VITALS: BMI 33.8
== END | disposition home or self-care (01) ==
LOC: D.MRI 07:42
DX: M51.36 Other intervertebral disc degeneration, lumbar region (principal)

== ENCOUNTER 2018-10-07 11:25 | Inpatient (IN) | payer MEDICARE, OTHER ==
[~2018-10-07] VITALS: Ht 182.9 cm; Wt 111.6 kg
--- NOTE | ~2018-10-07 | MORECARE ---
CASE MANAGEMENT DISCHARGE SUMMARY PATIENT: DANIA FISCHER UNIT: [id number] ADM DATE: 10/07/18 AGE: 67 : 54 SEX: M ROOM/BED: D.2235 AUTHOR: REESE HUA PHYSICIAN: REFERRING PHYSICIAN: ANTONIO SHANNON MD DATE OF SERVICE: 10/12/18 Discharge Plan Patient Name: DANIA FISCHER [facility] : 1950 Planned Disposition: Home Anticipated Discharge Date: 10/13/18 Discharge Date: Expected LOS: 6 Initial Reviewer: [email or web address] Initial Review Date: 10/12/2018 Generated: 10/12/18 2:54 pm DCPIA - Discharge Planning Initial Assessment Updated by [email or web address]: Bushra Adams on 10/12/18 1:54 pm * Is the patient Alert and Oriented? Yes * How many steps to enter\exit or inside your home? 4-5/0 * PCP Dr. Shannon * Pharmacy [facility] the [facility] * Preadmission Environment Home with Family * ADLs Independent * Equipment CPAP Crutch Rolling Walker Shower Chair * List name and contact numbers for known caregivers / representatives who currently or will assist patient after discharge: Dayan German [facility] - [phone] * Verbal permission to speak to the caregivers and representatives has been obtained from the patient. Yes * Community resources currently utilized None * Please name any agencies selected above. DME for CPAP is [facility] * Additional services required to return to the preadmission environment? No * Can the patient safely return to the preadmission environment? Yes * Has this patient been hospitalized within the prior 30 days at any hospital? No Patient Name: DANIA FISCHER Page [id number] at 1354 All edits/amendments must be made on the electronic document DICTATION DATE: 10/12/18 1354 PHYSICIAN CREDENTIALING SPECIALIST: CARMINE 10/12/18 1354 RPT#: [id number] DC DATE: STATUS: ADM IN [facility] [address] [place] [address] END OF REPORT
--- NOTE | ~2018-10-07 | MORECARE ---
CASE MANAGEMENT DISCHARGE SUMMARY PATIENT: DANIA FISCHER UNIT: [id number] ADM DATE: 10/07/18 AGE: 67 : 54 SEX: M ROOM/BED: D.2235 AUTHOR: REESE HUA PHYSICIAN: REFERRING PHYSICIAN: ANTONIO SHANNON MD DATE OF SERVICE: 10/15/18 Discharge Plan Patient Name: DANIA FISCHER Facility: [facility]:[place] : 1950 Planned Disposition: Home Anticipated Discharge Date: 10/13/18 Discharge Date: 10/13/2018 Expected LOS: 6 Initial Reviewer: [email or web address] Initial Review Date: 10/12/2018 Generated: 10/15/18 11:34 am Comments DCP- Discharge Planning Updated by [email or web address]: Bushra Adams on 10/13/18 7:[address] Patient Name: DANIA FISCHER Encounter No: [id number] : 1950 Primary Insurance: MEDICARE A & B Anticipated DC Date: 10-13-2018 Planned Disposition: Home External Planned Provider: : DCP follow-up note: Patient and family in agreement with discharge plan. Declines need for home health services. No changes to plan. Case management will follow and assist as needed. Bushra Adams DCP- Discharge Planning Updated by [email or web address]: Bushra Adams on 10/12/18 12:[address] Patient Name: DANIA FISCHER Admission Status: Urgent Accout number: [id number] Admission Date: 10-07-2018 : 1950 Admission Diagnosis:UNSP INTESTNL OBST, UNSP TO PARTIAL VERSUS COMPLETE Attending: ANTONIO SHANNON Current LOS: 5 Anticipated DC Date: 10-13-2018 Planned Disposition: Home Primary Insurance: MEDICARE A & B Discharge Planning Comments: CM met with patient and his spouse to discuss discharge planning. He lives in a one story home with his . He is independent with all ADL's and IADL's. States she gets his CPAP supplies from [facility]. I discussed availability of DME and home health and he declines need. No needs identified. CM will continue to follow and assist with discharge planning/needs. Video Arcade Manager: Bushra Adams DCPIA - Discharge Planning Initial Assessment Updated by [email or web address]: Bushra Adams on 10/12/18 1:54 pm * Is the patient Alert and Oriented? Yes * How many steps to enter\exit or inside your home? 4-5/0 * PCP Dr. Shannon * Pharmacy [facility] the [facility] * Preadmission Environment Home with Family * ADLs Independent * Equipment CPAP Crutch Rolling Walker Shower Chair * List name and contact numbers for known caregivers / representatives who currently or will assist patient after discharge: Dayan German spouse - [phone] * Verbal permission to speak to the caregivers and representatives has been obtained from the patient. Yes * Community resources currently utilized None * Please name any agencies selected above. DME for CPAP is [facility] * Additional services required to return to the preadmission environment? No * Can the patient safely return to the preadmission environment? Yes * Has this patient been hospitalized within the prior 30 days at any hospital? No Coverage Notice Reviewer: [email or web address] - Bushra Adams Notice Issued Date-Time: 10/13/2018 8:20 Notice Type: IM Discharge Notice Notice Delivered To: Patient Relationship to Patient: Self Fur Floor Worker Name: Delivery Method: HAND - Hand Delivered Lexii Days: Prior Verbal Notification: Recipient Understood Notice: Yes Recipient Signature: Yes Med Rec Note Co-signed by Attending: Coverage Notice Comment: IMM explained, signed, copy given, original placed in MR Last DP export: 10/13/18 7:26 Patient Name: DANIA FISCHER Page [id number] at 1035 All edits/amendments must be made on the electronic document DICTATION DATE: 10/15/18 1034 BUS ESCORT: CARMINE 10/15/18 1034 RPT#: [id number] DC DATE:10/13/18 STATUS: DIS IN [facility] [address] [place] [address] END OF REPORT
--- NOTE | ~2018-10-07 | HP ---
PATIENT: DANIA FISCHER MEDICAL RECORD: [id number] ACCOUNT: [id number] LOCATION:[id number] : 54 ADMISSION DATE: 10/07/18 PCP: ANTONIO SHANNON MD HISTORY AND PHYSICAL EXAMINATION DATE OF ADMISSION: 10/07/2018 CHIEF COMPLAINT: Nausea, vomiting, and abdominal pain. HISTORY OF PRESENT ILLNESS: A 67-year-old gentleman states he became ill yesterday. He has had numerous episodes of nausea and vomiting, vomiting of green bile material. He has complained of abdominal discomfort as well. PAST MEDICAL HISTORY: Significant in that he has had history of hypertension. He has also had hypothyroidism. He has had aortic aneurysm repair. He has also had back surgery, rheumatoid arthritis, gastroesophageal reflux, and borderline diabetes mellitus. FAMILY HISTORY: Mother had heart disease, hyperlipidemia, hypertension, diabetes, and kidney failure. She had CVA, at age 64. Father had hyperlipidemia, also hypertension, myocardial infarction, at 75. SOCIAL HISTORY: The patient educated through 12th grade. He is . He is a one to one and a half pack per day smoker. He has an occasional alcoholic beverage. He was born and raised in [place]. He currently works in construction with asphalt. ALLERGIES: No known drug allergies. MEDICATIONS: Include amlodipine 10 mg one p.o. daily, carvedilol 12.5 b.i.d., doxazosin 4 mg b.i.d., losartan 100 mg once a day, pravastatin 40 mg once a day, Synthroid 50 mcg once a day, tramadol 50 mg one to two every 6 hours p.r.n. pain, triamterene 37.5/hydrochlorothiazide 25 mg daily. REVIEW OF SYSTEMS: CONSTITUTIONAL: He denies any headache, seizure, or syncope. Denies any change in visual or auditory acuity. PULMONARY: He denies any shortness of breath, cough or congestion, history of TB, asthma, or bronchitis. CARDIOVASCULAR: He has had no chest pain, palpitation, PND, orthopnea. GASTROINTESTINAL: No chronic nausea, vomiting, melena, or hematochezia until the last couple of days. He has had nausea, vomiting, and abdominal pain. GENITOURINARY: No urgency, frequency, or dysuria. PHYSICAL EXAMINATION: GENERAL: He is an ill-appearing male. VITAL SIGNS: His weight is 246. Blood pressure 148/86, pulse 78, respirations are 14, and temperature 97.7. HEENT: His head is normocephalic. No lesions. Ears; TMs clear. Eyes; pupils are equal, round, and reactive to light. Extraocular movements are intact. Nasal cavity, oral cavity, and oropharynx clear. NECK: Supple. There is no adenopathy. HEART: He has regular rate. LUNGS: Clear. ABDOMEN: Protuberant. Bowel sounds are hypoactive. He has some subjective HISTORY AND PHYSICAL [id number] DANIA FISCHER tenderness around the periumbilical region. No rebound and no guarding. DIAGNOSTIC DATA: KUB shows early or partial bowel obstruction. ASSESSMENT: Acute onset of nausea and vomiting, partial bowel obstruction. PLAN: The patient will be admitted. IV hydration and antiemetics. Surgery consultation will be obtained. We will also have CT scan of the abdomen. Continue to evaluate this. TRANSINT:[id number] Voice Confirmation ID: [id number] DOCUMENT ID: [id number] ANTONIO SHANNON MD at 0722 CC: [id number] DICTATION DATE: 10/07/18 1724 TAX MAP TECHNICIAN: 10/07/18 1845 ADM IN [facility] [address] [place] [address]
--- NOTE | ~2018-10-07 | MORECARE ---
CASE MANAGEMENT DISCHARGE SUMMARY PATIENT: DANIA FISCHER UNIT: [id number] ADM DATE: 10/07/18 AGE: 67 : 54 SEX: M ROOM/BED: D.2235 AUTHOR: REESE HUA PHYSICIAN: REFERRING PHYSICIAN: ANTONIO SHANNON MD DATE OF SERVICE: 10/13/18 Discharge Plan Patient Name: DANIA FISCHER Facility: [facility]:[place] : 1950 Planned Disposition: Home Anticipated Discharge Date: 10/13/18 Discharge Date: Expected LOS: 6 Initial Reviewer: [email or web address] Initial Review Date: 10/12/2018 Generated: 10/13/18 9:26 am Comments DCP- Discharge Planning Updated by [email or web address]: Bushra Adams on 10/13/18 7:[address] Patient Name: DANIA FISCHER Encounter No: [id number] : 1950 Primary Insurance: MEDICARE A & B Anticipated DC Date: 10-13-2018 Planned Disposition: Home External Planned Provider: : DCP follow-up note: Patient and family in agreement with discharge plan. Declines need for home health services. No changes to plan. Case management will follow and assist as needed. Bushra Adams DCP- Discharge Planning Updated by [id number]: Bushra Adams on 10/12/18 12:[address] Patient Name: DANIA FISCHER Admission Status: Urgent Accout number: [id number] Admission Date: 10-07-2018 : 1950 Admission Diagnosis:UNSP INTESTNL OBST, UNSP TO PARTIAL VERSUS COMPLETE Attending: ANTONIO SHANNON Current LOS: 5 Anticipated DC Date: 10-13-2018 Planned Disposition: Home Primary Insurance: MEDICARE A & B Discharge Planning Comments: CM met with patient and his spouse to discuss discharge planning. He lives in a one story home with his . He is independent with all ADL's and IADL's. States she gets his CPAP supplies from [facility]. I discussed availability of DME and home health and he declines need. No needs identified. CM will continue to follow and assist with discharge planning/needs. Sat Tutor: Bushra Adams DCPIA - Discharge Planning Initial Assessment Updated by [email or web address]: Bushra Adams on 10/12/18 1:54 pm * Is the patient Alert and Oriented? Yes * How many steps to enter\exit or inside your home? 4-5/0 * PCP Dr. Shannon * Pharmacy [facility] the [facility] * Preadmission Environment Home with Family * ADLs Independent * Equipment CPAP Crutch Rolling Walker Shower Chair * List name and contact numbers for known caregivers / representatives who currently or will assist patient after discharge: Dayan German [facility] - [phone] * Verbal permission to speak to the caregivers and representatives has been obtained from the patient. Yes * Community resources currently utilized None * Please name any agencies selected above. DME for CPAP is [facility] * Additional services required to return to the preadmission environment? No * Can the patient safely return to the preadmission environment? Yes * Has this patient been hospitalized within the prior 30 days at any hospital? No Coverage Notice Reviewer: [id number] - Bushra Adams Notice Issued Date-Time: 10/13/2018 8:20 Notice Type: IM Discharge Notice Notice Delivered To: Patient Relationship to Patient: Self Oleomargarine Maker Name: Delivery Method: HAND - Hand Delivered Lexii Days: Prior Verbal Notification: Recipient Understood Notice: Yes Recipient Signature: Yes Med Rec Note Co-signed by Attending: Coverage Notice Comment: IMM explained, signed, copy given, original placed in MR Last DP export: 10/12/18 1:02 Patient Name: DANIA FISCHER Page [id number] at 0826 All edits/amendments must be made on the electronic document DICTATION DATE: 10/13/18825 RAILWAY EQUIPMENT OPERATOR: CARMINE 10/13/18825 RPT#: [id number] DC DATE: STATUS: ADM IN [facility] [address] [place] [address] END OF REPORT
--- NOTE | ~2018-10-07 | MORECARE ---
CASE MANAGEMENT DISCHARGE SUMMARY PATIENT: DANIA FISCHER UNIT: [id number] ADM DATE: 10/07/18 AGE: 67 : 54 SEX: M ROOM/BED: D.2235 AUTHOR: MELITA,DOC PHYSICIAN: REFERRING PHYSICIAN: ANTONIO SHANNON MD DATE OF SERVICE: 10/12/18 Discharge Plan Patient Name: DANIA FISCHER Facility: [facility]:[place] : 1950 Planned Disposition: Home Anticipated Discharge Date: 10/13/18 Discharge Date: Expected LOS: 6 Initial Reviewer: [email or web address] Initial Review Date: 10/12/2018 Generated: 10/12/18 3:02 pm Comments DCP- Discharge Planning Updated by [email or web address]: Bushra Adams on 10/12/18 12:[address] Patient Name: DANIA FISCHER Admission Status: Urgent Accout number: [id number] Admission Date: 10-07-2018 : 1950 Admission Diagnosis:UNSP INTESTNL OBST, UNSP TO PARTIAL VERSUS COMPLETE Attending: ANTONIO SHANNON Current LOS: 5 Anticipated DC Date: 10-13-2018 Planned Disposition: Home Primary Insurance: MEDICARE A & B Discharge Planning Comments: CM met with patient and his spouse to discuss discharge planning. He lives in a one story home with his . He is independent with all ADL's and IADL's. States she gets his CPAP supplies from [facility]. I discussed availability of DME and home health and he declines need. No needs identified. CM will continue to follow and assist with discharge planning/needs. Operator Engineer: Bushra Adams DCPIA - Discharge Planning Initial Assessment Updated by [id number]: Bushra Adams on 10/12/18 1:54 pm * Is the patient Alert and Oriented? Yes * How many steps to enter\exit or inside your home? 4-5/0 * PCP Dr. Shannon * Pharmacy [facility] * Preadmission Environment Home with Family * ADLs Independent * Equipment CPAP Crutch Rolling Walker Shower Chair * List name and contact numbers for known caregivers / representatives who currently or will assist patient after discharge: Dayan - spouse - [phone] * Verbal permission to speak to the caregivers and representatives has been obtained from the patient. Yes * Community resources currently utilized None * Please name any agencies selected above. DME for CPAP is [facility] * Additional services required to return to the preadmission environment? No * Can the patient safely return to the preadmission environment? Yes * Has this patient been hospitalized within the prior 30 days at any hospital? No Last DP export: 10/12/18 12:54 Patient Name: DANIA FISCHER Page [id number] at 1402 All edits/amendments must be made on the electronic document DICTATION DATE: 10/12/18 140 CAR PICK UP DRIVER: CARMINE 10/12/18 140 RPT#: [id number] DC DATE: STATUS: ADM IN [facility] [address] [place] [address] END OF REPORT
[2018-10-07] MEDS ORDERED: ADVIL200 MG PO (11:55)
[2018-10-07] MEDS ORDERED: LEVOTHYROXINE50 MCG PO (11:56)
[2018-10-07 11:57] VITALS: BP 144/81; BMI 33.4
[2018-10-07 12:44] LABS: BASOPHILS 0.1 % (0-2); EOSINOPHILS 0.5 % (0-7); HEMATOCRIT 39.3 % (42.0-54.0); HEMOGLOBIN 12.7 g/dL (13.5-17.5); IMMATURE GRANULOCYTES 0.1 % (0-5); LYMPHOCYTES 17.3 % (15-50); MCH 25.7 pg (26.0-34.0); MCHC 32.3 g/dL (31.0-37.0); MCV 79.4 fL (80.0-100.0); MEAN PLATELET VOLUME 8.6 fL (7.4-10.4); MONOCYTES 5.2 % (2-11); NEUTROPHILS 76.8 % (40-80); RBC 4.95 10x6/uL (4.20-6.10); RDW 15.6 % (11.5-14.5); WBC 11.5 10x3/uL (4.8-10.8)
[2018-10-07 12:54] LABS: PLATELET COUNT 339 10x3/uL (130-400)
[2018-10-07 12:58] LABS: ALBUMIN 3.3 g/dL (3.4-5.0); ALKALINE PHOSPHATASE 71 U/L (46-116); ALT (SGPT) 19 U/L (10-68); BILIRUBIN - TOTAL 0.39 mg/dL (0.2-1.3); CALC OSMOLALITY 278 mosm/kg (275-300); CALCIUM 8.9 mg/dL (8.5-10.1); CARBON DIOXIDE 28.7 mmol/L (21.0-32.0); CHLORIDE - SERUM 101 mmol/L (98-107); CREATININE - SERUM 0.9 mg/dL (0.6-1.3); GLUCOSE 134 mg/dL (74-106); SODIUM 137 mmol/L (136-145); UREA NITROGEN 21 mg/dL (7-18); eGFR NON AFRICAN AMERICAN 90 mL/min (90-120)
[2018-10-07 15:14] LABS: APPEARANCE CLEAR (CLEAR); BILIRUBIN NEGATIVE (NEGATIVE); COLOR YELLOW (YELLOW); GLUCOSE NEGATIVE (NEGATIVE); KETONE NEGATIVE (NEGATIVE); NITRITE NEGATIVE (NEGATIVE); PROTEIN 1+ mg/dL (NEGATIVE); UROBILINOGEN NORMAL (NORMAL)
[2018-10-07 15:15] LABS: BACTERIA FEW /hpf (NONE SEEN); EPITHELIAL CELLS 0-5 /hpf (0-5); RED CELLS - URINE 0-5 /hpf (0-5); WHITE CELLS - URINE 0-5 /hpf (0-5)
[2018-10-08 05:22] LABS: BASOPHILS 0.1 % (0-2); EOSINOPHILS 1.4 % (0-7); HEMATOCRIT 39.2 % (42.0-54.0); HEMOGLOBIN 12.5 g/dL (13.5-17.5); IMMATURE GRANULOCYTES 0.1 % (0-5); LYMPHOCYTES 21.7 % (15-50); MCH 25.5 pg (26.0-34.0); MCHC 31.9 g/dL (31.0-37.0); MEAN PLATELET VOLUME 8.9 fL (7.4-10.4); MONOCYTES 9.8 % (2-11); NEUTROPHILS 66.9 % (40-80); PLATELET COUNT 338 10x3/uL (130-400); RDW 15.8 % (11.5-14.5); WBC 9.9 10x3/uL (4.8-10.8)
[2018-10-08 05:37] LABS: CALC OSMOLALITY 276 mosm/kg (275-300); CALCIUM 8.7 mg/dL (8.5-10.1); CARBON DIOXIDE 29.2 mmol/L (21.0-32.0); CHLORIDE - SERUM 101 mmol/L (98-107); CREATININE - SERUM 0.8 mg/dL (0.6-1.3); GLUCOSE 123 mg/dL (74-106); POTASSIUM - SERUM 3.5 mmol/L (3.5-5.1); SODIUM 137 mmol/L (136-145); UREA NITROGEN 19 mg/dL (7-18); eGFR NON AFRICAN AMERICAN > 90 mL/min (90-120)
[2018-10-08 22:31] VITALS: BP 142/74
[2018-10-09] VITALS: BP 135/78
[2018-10-09 04:00] VITALS: BP 134/78
[2018-10-09 04:13] LABS: BASOPHILS 0.3 % (0-2); EOSINOPHILS 2.1 % (0-7); HEMATOCRIT 36.3 % (42.0-54.0); HEMOGLOBIN 11.6 g/dL (13.5-17.5); IMMATURE GRANULOCYTES 0.1 % (0-5); LYMPHOCYTES 26.1 % (15-50); MCH 25.4 pg (26.0-34.0); MCV 79.4 fL (80.0-100.0); MEAN PLATELET VOLUME 8.7 fL (7.4-10.4); NEUTROPHILS 60.4 % (40-80); PLATELET COUNT 281 10x3/uL (130-400); RBC 4.57 10x6/uL (4.20-6.10); RDW 15.7 % (11.5-14.5); WBC 7.6 10x3/uL (4.8-10.8)
[2018-10-09 04:25] LABS: ALBUMIN 2.8 g/dL (3.4-5.0); ALKALINE PHOSPHATASE 59 U/L (46-116); ALT (SGPT) 15 U/L (10-68); BILIRUBIN - TOTAL 0.42 mg/dL (0.2-1.3); CALC OSMOLALITY 275 mosm/kg (275-300); CALCIUM 8.5 mg/dL (8.5-10.1); CARBON DIOXIDE 29.9 mmol/L (21.0-32.0); CHLORIDE - SERUM 102 mmol/L (98-107); CREATININE - SERUM 0.7 mg/dL (0.6-1.3); GLUCOSE 121 mg/dL (74-106); MAGNESIUM - SERUM 1.9 mg/dL (1.8-2.4); POTASSIUM - SERUM 3.5 mmol/L (3.5-5.1); PROTEIN - SERUM 6.7 g/dL (6.4-8.2); SODIUM 137 mmol/L (136-145); eGFR NON AFRICAN AMERICAN > 90 mL/min (90-120)
[2018-10-09 04:26] LABS: UREA NITROGEN 14 mg/dL (7-18)
[2018-10-09 08:57] VITALS: BP 144/82
[2018-10-09 12:20] VITALS: BP 128/84
[2018-10-09 13:24] VITALS: Ht 182.9 cm; Wt 111.6 kg
[2018-10-09 16:19] VITALS: BP 153/84
[2018-10-09 20:02] VITALS: BP 140/85
[2018-10-10 00:24] VITALS: BP 136/74
[2018-10-10 04:55] LABS: BASOPHILS 0.2 % (0-2); EOSINOPHILS 2.5 % (0-7); HEMATOCRIT 37.3 % (42.0-54.0); HEMOGLOBIN 12.1 g/dL (13.5-17.5); IMMATURE GRANULOCYTES 0.2 % (0-5); MCH 25.7 pg (26.0-34.0); MCHC 32.4 g/dL (31.0-37.0); MCV 79.2 fL (80.0-100.0); MEAN PLATELET VOLUME 8.9 fL (7.4-10.4); MONOCYTES 12.1 % (2-11); PLATELET COUNT 280 10x3/uL (130-400); RBC 4.71 10x6/uL (4.20-6.10); RDW 15.5 % (11.5-14.5); WBC 8.1 10x3/uL (4.8-10.8)
[2018-10-10 04:56] VITALS: BP 124/70
[2018-10-10 05:03] LABS: ALBUMIN 2.7 g/dL (3.4-5.0); ALKALINE PHOSPHATASE 58 U/L (46-116); ALT (SGPT) 17 U/L (10-68); BILIRUBIN - TOTAL 0.63 mg/dL (0.2-1.3); CALC OSMOLALITY 275 mosm/kg (275-300); CALCIUM 8.6 mg/dL (8.5-10.1); CARBON DIOXIDE 29.1 mmol/L (21.0-32.0); CHLORIDE - SERUM 101 mmol/L (98-107); CREATININE - SERUM 0.8 mg/dL (0.6-1.3); GLUCOSE 117 mg/dL (74-106); PHOSPHOROUS 3.1 mg/dL (2.5-4.9); POTASSIUM - SERUM 3.6 mmol/L (3.5-5.1); PROTEIN - SERUM 6.8 g/dL (6.4-8.2); SODIUM 137 mmol/L (136-145); UREA NITROGEN 14 mg/dL (7-18); eGFR NON AFRICAN AMERICAN > 90 mL/min (90-120)
[2018-10-10 09:10] VITALS: BP 131/70
[2018-10-10 12:13] VITALS: BP 145/84
[2018-10-10 14:44] VITALS: BP 134/86
[2018-10-10 20:47] VITALS: BP 113/65
[2018-10-11 01:03] VITALS: BP 144/81
[2018-10-11 05:02] LABS: BASOPHILS 0.2 % (0-2); EOSINOPHILS 2.9 % (0-7); HEMATOCRIT 34.6 % (42.0-54.0); IMMATURE GRANULOCYTES 0.1 % (0-5); LYMPHOCYTES 26.9 % (15-50); MCH 25.1 pg (26.0-34.0); MCHC 31.8 g/dL (31.0-37.0); MCV 78.8 fL (80.0-100.0); MEAN PLATELET VOLUME 8.5 fL (7.4-10.4); MONOCYTES 10.4 % (2-11); NEUTROPHILS 59.5 % (40-80); PLATELET COUNT 253 10x3/uL (130-400); RBC 4.39 10x6/uL (4.20-6.10); RDW 15.5 % (11.5-14.5); WBC 8.9 10x3/uL (4.8-10.8)
[2018-10-11 05:24] LABS: ALBUMIN 2.6 g/dL (3.4-5.0); ALKALINE PHOSPHATASE 56 U/L (46-116); ALT (SGPT) 16 U/L (10-68); BILIRUBIN - TOTAL 0.79 mg/dL (0.2-1.3); CALC OSMOLALITY 278 mosm/kg (275-300); CALCIUM 8.5 mg/dL (8.5-10.1); CARBON DIOXIDE 26.4 mmol/L (21.0-32.0); CHLORIDE - SERUM 105 mmol/L (98-107); CREATININE - SERUM 0.8 mg/dL (0.6-1.3); GLUCOSE 97 mg/dL (74-106); MAGNESIUM - SERUM 2.3 mg/dL (1.8-2.4); POTASSIUM - SERUM 3.7 mmol/L (3.5-5.1); PROTEIN - SERUM 6.5 g/dL (6.4-8.2); SODIUM 139 mmol/L (136-145); UREA NITROGEN 15 mg/dL (7-18); eGFR NON AFRICAN AMERICAN > 90 mL/min (90-120)
[2018-10-11 05:58] VITALS: BP 131/80
[2018-10-11 11:28] VITALS: BP 160/87
[2018-10-11 16:38] VITALS: BP 138/85
[2018-10-12 01:51] VITALS: BP 139/82
[2018-10-12 04:11] LABS: BASOPHILS 0.4 % (0-2); EOSINOPHILS 3.7 % (0-7); HEMATOCRIT 33.8 % (42.0-54.0); HEMOGLOBIN 10.7 g/dL (13.5-17.5); IMMATURE GRANULOCYTES 0.2 % (0-5); LYMPHOCYTES 22.5 % (15-50); MCH 25.2 pg (26.0-34.0); MCHC 31.7 g/dL (31.0-37.0); MCV 79.7 fL (80.0-100.0); MEAN PLATELET VOLUME 8.6 fL (7.4-10.4); MONOCYTES 10.1 % (2-11); NEUTROPHILS 63.1 % (40-80); PLATELET COUNT 247 10x3/uL (130-400); RBC 4.24 10x6/uL (4.20-6.10); RDW 15.6 % (11.5-14.5); WBC 8.3 10x3/uL (4.8-10.8)
[2018-10-12 04:32] LABS: ALBUMIN 2.4 g/dL (3.4-5.0); ALKALINE PHOSPHATASE 52 U/L (46-116); ALT (SGPT) 17 U/L (10-68); BILIRUBIN - TOTAL 0.55 mg/dL (0.2-1.3); CALC OSMOLALITY 281 mosm/kg (275-300); CALCIUM 7.9 mg/dL (8.5-10.1); CARBON DIOXIDE 28.8 mmol/L (21.0-32.0); CHLORIDE - SERUM 108 mmol/L (98-107); CREATININE - SERUM 0.7 mg/dL (0.6-1.3); GLUCOSE 92 mg/dL (74-106); MAGNESIUM - SERUM 2.1 mg/dL (1.8-2.4); PHOSPHOROUS 2.5 mg/dL (2.5-4.9); POTASSIUM - SERUM 4.2 mmol/L (3.5-5.1); PROTEIN - SERUM 6.3 g/dL (6.4-8.2); SODIUM 141 mmol/L (136-145); UREA NITROGEN 16 mg/dL (7-18); eGFR NON AFRICAN AMERICAN > 90 mL/min (90-120)
[2018-10-12 08:14] VITALS: BP 158/83
[2018-10-12 17:50] VITALS: BP 151/57
[2018-10-12 21:04] VITALS: BP 131/74
[2018-10-13 00:18] VITALS: BP 148/70
[2018-10-13 08:10] VITALS: BP 160/94
== END 2018-10-13 11:01 | disposition home or self-care (01) | DRG 390 ==
LOC: D.MS 11:25
PROVIDERS: Family Medicine
DX: K56.609 Unspecified intestinal obstruction, unspecified as to partial versus complete obstruction (principal); I10 Essential (primary) hypertension

== ENCOUNTER → 2018-12-30 09:46 | Outpatient (CLI) | payer MEDICARE, OTHER ==
[2018-10-09 13:24] VITALS: BMI 33.3
[~2018-12-30 09:46] MED LIST changes: +ADVIL200 MG PO; +LEVOTHYROXINE50 MCG PO
== END | disposition home or self-care (01) ==
LOC: D.RAD 09:46
DX: R10.9 Unspecified abdominal pain (principal)

== ENCOUNTER → 2019-03-17 13:32 | Outpatient (CLI) | payer MEDICARE, OTHER ==
[2018-10-09 13:24] VITALS: BMI 33.3
== END | disposition home or self-care (01) ==
LOC: D.US 13:32
PROVIDERS: ATTEND Internal Medicine Cardiovascular Disease
DX: I73.9 Peripheral vascular disease, unspecified (principal)

== ENCOUNTER → 2020-03-13 09:53 | Outpatient (CLI) | payer MEDICARE, OTHER ==
[2018-10-09 13:24] VITALS: BMI 33.3
== END | disposition home or self-care (01) ==
LOC: D.US 09:53
PROVIDERS: ATTEND Internal Medicine Cardiovascular Disease
DX: I70.211 Atherosclerosis of native arteries of extremities with intermittent claudication, right leg (principal); I71.4 Abdominal aortic aneurysm, without rupture

== ENCOUNTER → 2021-05-14 10:19 | Outpatient (CLI) | payer MEDICARE, OTHER ==
[2020-12-22 09:09] VITALS: BMI 34.0
[~2021-05-14 10:19] MED LIST changes: +DYRENIUM50 MG PO; +GLUCOPHAGE500 MG PO; +LASIX20 MG PO; +LIPITOR80 MG PO; +METHOTREXATE2.5 MG PO; +[UNRECOGNIZED DRUG - OTHER] IV
== END | disposition home or self-care (01) ==
LOC: D.US 04-09 13:00
PROVIDERS: ATTEND Thoracic Surgery (Cardiothoracic Vascular Surgery)
DX: I73.9 Peripheral vascular disease, unspecified (principal)